=== PATIENT | female | born 1935 | race Caucasian/White ===

== ENCOUNTER → 2023-04-12 09:52 | Outpatient (REF) | payer MEDICARE, SELFPAY ==
[2023-04-12 10:35] LABS: % Basophils 0.3 % (0-2); % Immature Granulocytes 0.8 % (0-0.5); % Lymphocytes 18.1 % (20.5-51.1); % Monocytes 8.3 % (1.7-9.3); % Neutrophils 69.5 % (42.2-75.2); Absolute Eosinophils 0.3 10^3/uL (0-0.7); Absolute Immature Granulocytes 0.1 10^3/uL (0-0.05); Absolute Lymphocytes 1.7 10^3/uL (1.2-3.4); Absolute Monocytes 0.8 10^3/uL (0.1-0.6); Absolute Neutrophils 6.3 10^3/uL (1.4-6.5); Hematocrit 39.7 % (37.0-47.0); Hemoglobin 13.9 g/dL (12.0-16.0); Mean Corpuscular Hgb 33.7 pg (27.0-31.0); Mean Corpuscular Volume 96.4 fL (81.0-99.0); Mean Platelet Volume 9.6 fL (7.4-10.4); Nucleated Red Blood Cells % 0 %; Platelet Count 283 10^3/uL (130-400); Red Blood Cell Count 4.12 10^6/uL (4.20-5.40); Red Cell Dist. Width 11.8 % (11.5-14.5); White Blood Cell Count 9.1 10^3/uL (4.8-10.8)
[2023-04-12 11:09] LABS: ALT (SGPT) 15 U/L (0-35); AST (SGOT) 25 U/L (14-36); Alkaline Phosphatase 69 U/L (38-126); Blood Urea Nitrogen 25 mg/dl (7-17); Calcium 9.6 mg/dl (8.4-10.2); Carbon Dioxide 33 mmol/L (22-30); Chloride 97 mmol/L (98-107); Glucose 129 mg/dl (70-99); HDL Cholesterol 76 mg/dl; LDL Cholesterol, Calculated 97 mg/dl; Potassium 3.9 mmol/L (3.5-5.1); Sodium 133 mmol/L (135-145); Total Cholesterol 191 mg/dl (50-199); Total Protein 6.8 g/dl (6.3-8.2); Triglyceride 92 mg/dl (10-149); Very Low Density Lipoprotein 18 mg/dl (0-30); eGFR > 60.00
[2023-04-12 11:18] LABS: Free T4 1.91 ng/dl (0.78-2.19)
[2023-04-12 11:31] LABS: TSH 1.32 uIU/ml (0.47-4.68)
[2023-04-12 12:43] LABS: Urine Albumin Trace (Neg - Trace); Urine Bilirubin Negative (Negative); Urine Character Clear (Clear); Urine Color Yellow; Urine Glucose Negative (Negative); Urine Ketone Negative (Negative); Urine Leukocyte 2+ (Negative); Urine Nitrite Negative (Negative); Urine Occult Blood 2+ (Negative); Urine Urobilinogen Negative (Neg - 1+)
[2023-04-12 12:57] LABS: Urine Mucus Few
[2023-04-12 12:58] LABS: Urine Bacteria Moderate (Negative); Urine White Cell 16-20 /HPF (0-5)
== END ==
LOC: REG 09:52
PROVIDERS: ATTENDING PHYSICIAN Internal Medicine
DX: E03.8 Other specified hypothyroidism (principal); E78.2 Mixed hyperlipidemia; R73.01 Impaired fasting glucose; I10 Essential (primary) hypertension; I70.0 Atherosclerosis of aorta; E55.9 Vitamin D deficiency, unspecified; R73.03 Prediabetes; M85.89 Other specified disorders of bone density and structure, multiple sites; N32.81 Overactive bladder; Z87.448 Personal history of other diseases of urinary system; Z79.899 Other long term (current) drug therapy
CPT/HCPCS: 36415; 80053; 80061; 81003; 81015; 82306; 84439; 84443; 85025

== ENCOUNTER → 2023-05-10 15:19 | Outpatient (REF) | payer MEDICARE, SELFPAY | LOC: RAD 15:19 | PROVIDERS: ATTENDING PHYSICIAN Internal Medicine | DX: R31.29 Other microscopic hematuria (principal) | CPT/HCPCS: 76770 ==

== ENCOUNTER → 2023-10-09 08:46 | Outpatient (REF) | payer MEDICARE, SELFPAY ==
[2023-10-09 09:52] LABS: % Basophils 0.5 % (0-2); % Eosinophils 4.8 % (0-6); % Immature Granulocytes 0.5 % (0-0.5); % Lymphocytes 19.3 % (20.5-51.1); % Monocytes 7.8 % (1.7-9.3); % Neutrophils 67.1 % (42.2-75.2); Absolute Basophils 0.1 10^3/uL (0-0.2); Absolute Eosinophils 0.4 10^3/uL (0-0.7); Absolute Immature Granulocytes 0.1 10^3/uL (0-0.05); Absolute Lymphocytes 1.8 10^3/uL (1.2-3.4); Absolute Monocytes 0.7 10^3/uL (0.1-0.6); Absolute Neutrophils 6.2 10^3/uL (1.4-6.5); Hematocrit 39.5 % (37.0-47.0); Hemoglobin 13.5 g/dL (12.0-16.0); Mean Corp Hgb Conc. 34.2 g/dL (33.0-37.0); Mean Corpuscular Hgb 33.3 pg (27.0-31.0); Mean Corpuscular Volume 97.3 fL (81.0-99.0); Mean Platelet Volume 10.2 fL (7.4-10.4); Nucleated Red Blood Cells % 0 %; Platelet Count 256 10^3/uL (130-400); Red Blood Cell Count 4.06 10^6/uL (4.20-5.40); Red Cell Dist. Width 11.5 % (11.5-14.5); Urine Albumin Negative (Neg - Trace); Urine Bilirubin Negative (Negative); Urine Character Clear (Clear); Urine Color Yellow; Urine Glucose Negative (Negative); Urine Ketone Negative (Negative); Urine Leukocyte 2+ (Negative); Urine Nitrite Negative (Negative); Urine Occult Blood 1+ (Negative); Urine Specific Gravity 1.015 (<1.030); Urine Urobilinogen Negative (Neg - 1+); White Blood Cell Count 9.2 10^3/uL (4.8-10.8)
[2023-10-09 09:59] LABS: ALT (SGPT) 12 U/L (0-35); AST (SGOT) 24 U/L (14-36); Albumin 4.2 g/dl (3.5-5.0); Alkaline Phosphatase 71 U/L (38-126); Blood Urea Nitrogen 19 mg/dl (7-17); Carbon Dioxide 31 mmol/L (22-30); Chloride 96 mmol/L (98-107); Glucose 120 mg/dl (70-99); HDL Cholesterol 80 mg/dl; LDL Cholesterol, Calculated 98 mg/dl; Potassium 3.8 mmol/L (3.5-5.1); Sodium 133 mmol/L (135-145); Total Bilirubin 1.1 mg/dl (0.2-1.3); Total Cholesterol 198 mg/dl (50-199); Total Protein 6.7 g/dl (6.3-8.2); Triglyceride 104 mg/dl (10-149); Very Low Density Lipoprotein 20 mg/dl (0-30); eGFR > 60.00
[2023-10-09 10:47] LABS: Urine Bacteria Many (Negative); Urine Red Blood Cell 0-2 /HPF (0-2)
[2023-10-09 12:04] LABS: Glycohemoglobin (HgbA1c) 5.8 % (4.0-5.6)
[2023-10-09 12:14] LABS: TSH Reflex To Free T4 2.01 uIU/ml (0.47-4.68)
== END ==
LOC: REG 08:46
PROVIDERS: ATTENDING PHYSICIAN Internal Medicine
DX: E83.119 Hemochromatosis, unspecified (principal); E03.8 Other specified hypothyroidism; E78.2 Mixed hyperlipidemia; R73.01 Impaired fasting glucose; I10 Essential (primary) hypertension; I70.0 Atherosclerosis of aorta; E55.9 Vitamin D deficiency, unspecified; R73.03 Prediabetes; M85.89 Other specified disorders of bone density and structure, multiple sites; Z79.899 Other long term (current) drug therapy; R82.90 Unspecified abnormal findings in urine; R79.9 Abnormal finding of blood chemistry, unspecified; R79.89 Other specified abnormal findings of blood chemistry
CPT/HCPCS: 36415; 80053; 80061; 81003; 81015; 82306; 83036; 84443; 85025

== ENCOUNTER → 2023-12-17 14:48 | Outpatient (REF) | payer MEDICARE, SELFPAY | LOC: RCS 14:48 | PROVIDERS: ATTENDING PHYSICIAN Internal Medicine Cardiovascular Disease; FAMILY PHYSICIAN Internal Medicine | DX: I10 Essential (primary) hypertension (principal); E83.119 Hemochromatosis, unspecified; I36.1 Nonrheumatic tricuspid (valve) insufficiency | CPT/HCPCS: 93306 ==

== ENCOUNTER 2024-07-05 12:39 | Inpatient (IN) | payer MEDICARE, SELFPAY ==
[2024-07-05] VITALS (10 sets, daily range): BP systolic 133–180; BP diastolic 57–100; BMI 28.8
--- NOTE | 2024-07-05 08:21 | ED.GENMED ---
History of Present Illness
General
Chief Complaint: Abdominal Symptoms
Time Seen by Provider: 07/05/24 08:11
History of Present Illness
History of Present Illness:
89-year-old female with history of hypertension presents the emergency department for evaluation of generalized for the past 5 to 6 days associated with nausea and vomiting and lower abdominal pain. She reports abdominal pain began 2 days ago and
vomiting began yesterday. Has been unable to tolerate any p.o. food or fluids in the past 24 hours. No history abdominal surgeries. No fevers. Notes that she did get a COVID vaccination the day prior to onset of symptoms. Denies chest pain or
shortness of breath. No recent URI symptoms.
Past History
Past History
ED Past Medical History: HTN, Hypercholesterolemia and Other (low back pain)
ED Past Surgical History: None
Social History
Tobacco: Non-smoker
Alcohol: None
Personal:
Living: with family
Review of Systems
Review of Systems
Allergies reviewed?: Yes
All Other Systems: ROS reviewed and negative except as documented in HPI and ROS
Phy Exam
Physical Exam
Physical Exam:
GEN: Well appearing, NAD, WDWN
HEENT: Oral mucosa moist, no scleral icterus
Cardiac: Regular rate and rhythm, no murmur
Lung: No respiratory distress, no tachypnea
Abdomen: Soft, diffusely tender to all 4 quadrants with no rigidity or peritoneal signs
MSK: No gross deformity or injuries
Skin: Good color, no pallor or jaundice, no rashes
Neuro: AO x3, moves all extremities freely
Psych: Calm, cooperative
Course
Orders/Labs/Results
Orders:
Orders
07/05/24 Breakfast
NPO
Allow oral meds: No
Allow clear liquids: Sips of Clears
NPO with Ice Chips: No
07/05/24 08:20
Electrocardiogram (*1) Urgent
Reason for Study: QTc Monitoring
EKG- Treatment ONCE
0.9% Sodium Chloride 1000 ml [Nss] 1,000 ml IV BOLUS
Ondansetron Injectable [Zofran] 4 mg IV NOW STA
07/05/24 08:28
Complete Blood Count/With Diff Urgent
Comprehensive Metabolic Panel Urgent
Lipase Urgent
07/05/24 10:23
CT Abd/Pel (IV only)-DH only Urgent
Comment:
Reason For Exam: lower abd pain
07/05/24 12:20
Admit/Transfer Patient As Directed
Co-Sign Provider:
Level of Care: Inpatient admission
Assign to:: Medical/Surgical
Physician / Group: [email or web address]
Diagnosis: colon mass, partial large BWO
Reason for Hospitalization: large colon mass( 3cm x1 cm) at splenic flexure cocerning for colon CA
suspect developing parial large BWO with N/V
Expected length of stay greater than two midnights?: Yes
ELOS- Estimated Length of Stay in days: 5
I certify the patient meets the requirements for IP care: Yes
07/05/24 12:25
Code Status As Directed
Resuscitation Status: Full Code
07/05/24 12:35
Code Status As Directed
Resuscitation Status: Do not resuscitate
Reached after discussion with pt or family/Healthcare POA: Yes
Decision communicated with: patient in the presence of ELECTRO OPTICS ENGINEER
DNR Bracelet Application ONCE
07/05/24 12:48
HYDROmorphone [Dilaudid] 0.5 mg IV Q4HPRN PRN
Ketorolac [Toradol] 10 mg IV Q6HPRN PRN
Ondansetron Injectable [Zofran] 4 mg IV Q6HPRN PRN
07/05/24 13:04
0.9% Sodium Chloride 1000 ml [Nss] 1,000 ml IV 60 mls/hr
07/05/24 13:25
ColoRectal Surgery Consult Routine
Consulting Provider: Bo Moreno
Was physician already notified: Yes
Reason for consult: colon mass, partial large BWO
07/05/24 14:13
Bisacodyl [Dulcolax] 10 mg RECTAL [id number] PRN
Docusate W/Senna [Senokot-S] 1 tablet PO BIDPRN PRN
Polyethylene Glycol Powder [Miralax] 17 grams PO DAILYPRN PRN
07/05/24 14:13
Activity As Directed
Activity Level: With Assistance
Intake/ Output As Directed
Frequency: Per unit guidelines
Vital Signs As Directed
Frequency: Per unit guidelines
Weight As Directed
Frequency: Daily
DX Deep Vein Thrombosis Video Routine
07/05/24 20:00
Heparin 5,000 units SC Q12
07/06/24 06:00
Basic Metabolic Panel IN AM
Complete Blood Count/With Diff IN AM
Abnormal Lab Results
07/05/24
08:28
WBC 11.9 H 10^3/uL
(4.8-10.8)
RBC 4.05 L 10^6/uL
(4.20-5.40)
Hct 36.0 L %
(37.0-47.0)
Abs Immat Gran (auto) 0.1 H 10^3/uL
(0-0.05)
Absolute Neuts (auto) 9.5 H 10^3/uL
(1.4-6.5)
Absolute Monos (auto) 0.8 H 10^3/uL
(0.1-0.6)
Neutrophils % 79.6 H %
(42.2-75.2)
Lymphocytes % 12.4 L %
(20.5-51.1)
Sodium 134 L mmol/L
(135-145)
BUN 25 H mg/dl
(7-17)
Glucose 136 H mg/dl
(70-99)
Calcium 10.3 H mg/dl
(8.4-10.2)
07/05/24 08:28
07/05/24 08:28
Vital Signs
Initial and Last Documented VS:
Initial Vital Signs
Pulse Resp BP Pulse Ox
69 16 162/78 96
07/05/24 08:13 07/05/24 08:13 07/05/24 08:13 07/05/24 08:13
Last Documented Vital Signs
Temp Pulse Resp BP Pulse Ox
98.2 F 65 16 176/77 96
07/05/24 14:15 07/05/24 14:15 07/05/24 14:15 07/05/24 14:15 07/05/24 14:15
MDM/Problems Addressed
MDM/Problems Addressed:
Will admit due to findings of potential developing bowel obstruction for colorectal surgery evaluation, she has a nonperitoneal abdominal exam
*Critical Care Note
Total Time (30-74mins, 75-104mins- exclusive of procedures): Not Applicable
ED Attending Note
-
Portions of this chart may have been created with voice recognition software.� Occasional wrong word or��sound alike� substitutions may have occurred due to the inherent limitations of voice recognition software.
Discharge Plan
Departure
Patient Disposition: Admit
Date of Disposition: 07/05/24
Time of Disposition: 11:58
Admit to: Med/Surg
Presentation/result/management discussed w/ accepting MD/DO: Hospitalist
Discharge Problem:
Partial large bowel obstruction
Interventions
Interventions:
*Risk Screen - Suicide Last Done: 07/05/24 09:20
*General Assessment Last Done: 07/05/24 08:16
*Neglect/Abuse Screening Last Done: 07/05/24 08:16
*ED- Fall Risk Assessment Last Done: 07/05/24 08:17
*ED COVID-19 Vaccine History Last Done: 07/05/24 08:17
*Nursing Disposition Last Done: 07/05/24 14:10
JN-[facility]oss[facility]-Trwaaxuhww Assessment Last Done: 07/05/24 08:27
Discharge Date and Time
Discharge Date/Time: 07/05/24 14:15
[2024-07-05] MEDS: NSS 1000 IV ×2 (08:26→13:37)
[2024-07-05] MEDS: ZOFRAN 4 MG IV ×3 (08:27→20:42)
[2024-07-05 08:39] LABS: % Basophils 0.3 % (0-2); % Eosinophils 0.5 % (0-6); % Immature Granulocytes 0.5 % (0-0.5); % Lymphocytes 12.4 % (20.5-51.1); % Monocytes 6.7 % (1.7-9.3); % Neutrophils 79.6 % (42.2-75.2); Absolute Eosinophils 0.1 10^3/uL (0-0.7); Absolute Immature Granulocytes 0.1 10^3/uL (0-0.05); Absolute Lymphocytes 1.5 10^3/uL (1.2-3.4); Absolute Monocytes 0.8 10^3/uL (0.1-0.6); Absolute Neutrophils 9.5 10^3/uL (1.4-6.5); Hemoglobin 12.1 g/dL (12.0-16.0); Mean Corp Hgb Conc. 33.6 g/dL (33.0-37.0); Mean Corpuscular Hgb 29.9 pg (27.0-31.0); Mean Corpuscular Volume 88.9 fL (81.0-99.0); Mean Platelet Volume 9.4 fL (7.4-10.4); Nucleated Red Blood Cells % 0 %; Platelet Count 303 10^3/uL (130-400); Red Blood Cell Count 4.05 10^6/uL (4.20-5.40); Red Cell Dist. Width 12.5 % (11.5-14.5); White Blood Cell Count 11.9 10^3/uL (4.8-10.8)
[2024-07-05 08:47] LABS: ALT (SGPT) 13 U/L (0-35); AST (SGOT) 21 U/L (14-36); Albumin 4.1 g/dl (3.5-5.0); Alkaline Phosphatase 69 U/L (38-126); Blood Urea Nitrogen 25 mg/dl (7-17); Calcium 10.3 mg/dl (8.4-10.2); Carbon Dioxide 25 mmol/L (22-30); Chloride 99 mmol/L (98-107); Glucose 136 mg/dl (70-99); Lipase 33 U/L (23-300); Potassium 4.7 mmol/L (3.5-5.1); Sodium 134 mmol/L (135-145); eGFR > 60.00
--- NOTE | 2024-07-05 12:02 | HPS.HSE ---
Family Physician
-
Family Physician: Shalom Couch
Chief Complaint
-
abdominal pain and N/V
History of Present Illness
HPI
89F Non smoker HX HTN, HLD, chr LBP seen at ER
- onset of generalized lower abdominal pain for 5 to 6 days
- associated with nausea and vomiting and
- vomiting began yesterday
- unable to tolerate any p.o. food or fluids in the past 24 hours.
- No history abdominal surgeries.
- No fevers.
- Notes that she did get a COVID vaccination the day prior to onset of symptoms.
- Denies chest pain or shortness of breath. No recent URI symptoms.
Medical History
Past Medical History
Past Medical History: Reports HTN and Hypercholesterolemia
Past Surgical History: Reports None
Social History
Tobacco: Non-smoker
Drug: None
Family History
Family History: Not pertinent
Allergies / Home Medications
Allergies reflects when Allergies were last updated in [facility].
Home Medications with original date entered in [facility]
Allergy/Medication List:
Allergies
Allergy/AdvReac Type Severity Reaction Status Date / Time
codeine Allergy Nausea / Verified 07/05/24 12:04
Vomiting
Home Medications
bismuth subsalicylate 262 mg chewable tablet 1 tab PO PRN PRN .as directed 07/05/24
calcium 600 mg (as carbonate)-vit D3 20 mcg (800 unit) chewable tablet (Caltrate plus D) 1 tab PO DAILY 07/05/24
levothyroxine 88 mcg tablet 88 mcg PO DAILY 07/05/24
losartan 50 mg tablet 50 mg PO DAILY 07/05/24
multivitamin-ferrous fumarate-folic acid 18 mg-400 mcg tablet (Centrum Women) 1 tab PO DAILY 07/05/24
nebivolol 5 mg tablet 5 mg PO BID 07/05/24
omega 3-bcb-lfr-fish oil 1,200 mg (144 mg-216 mg) capsule (Fish Oil) 1 cap PO DAILY 07/05/24
omeprazole 20 mg capsule,delayed release 20 mg PO DAILY 07/05/24
pravastatin 20 mg tablet 20 mg PO DAILY 07/05/24
tolterodine 4 mg capsule,extended release 24 hr 4 mg PO DAILY 07/05/24
tramadol 50 mg tablet 50 mg PO PRN PRN pain 07/05/24
zolpidem 5 mg tablet 5 mg PO HS 07/05/24
Review of Systems
-
Constitutional: Reports No Symptoms
EENT: Reports No Symptoms
Respiratory: Reports No Symptoms
Cardiac: Reports No Symptoms
Abdomen/GI: Reports Abdominal Pain, Nausea and Vomiting
: Reports No Symptoms
Musculoskeletal: Reports No Symptoms
Skin: Reports No Symptoms
Neurological: Reports No Symptoms
Endocrine: Reports No Symptoms
Hematologic/Lymphatic: Reports No Symptoms
Psych: Reports No Symptoms
Physical Exam
Vital Signs
Vital Signs
Temp Pulse Resp BP Pulse Ox
99.2 F 66 25 168/65 94
07/05/24 08:14 07/05/24 11:45 07/05/24 11:45 07/05/24 10:54 07/05/24 09:30
Physical Exam
General: Well Developed, Well Nourished and No Apparent Distress
HEENT: NormoCephalic, Moist mucous membranes and Atraumatic
Respiratory: Clear
Cardiac: S1/S2 and Regular Rhythm; No Murmur or Rub
GI: Other (Soft, diffusely tender to all 4 quadrants with no rigidity or no peritoneal signs)
Rectal: Deferred by Provider
Musculoskeletal: No Clubbing, No Cyanosis and No Edema
Skin: No Rash
Neuro: Nonfocal/grossly intact
Laboratory Results
-
07/05/24 08:28
07/05/24 08:28
Laboratory Results
Total Bilirubin 1.0 mg/dl (0.2-1.3) 07/05/24 08:28
AST 21 U/L (14-36) 07/05/24 08:28
ALT 13 U/L (0-35) 07/05/24 08:28
Alkaline Phosphatase 69 U/L (38-126) 07/05/24 08:28
Lipase 33 U/L (23-300) 07/05/24 08:28
Data Reviewed
-
CT Scan: Report Reviewed by me
Medical Tests (Nuc Med, Echo, EKG etc): Report Reviewed by me
Lab Data: Labs Reviewed by me
Impression/Plan
-
Selected Entries
07/05/24
08:14 07/05/24
09:00
Pulse 64
Resp Rate 14
Blood pressure 162/78 175/57
Laboratory Tests
07/05/24
08:28
WBC 11.9 H
Hgb 12.1
MCV 88.9
Plt Count 303
Sodium 134 L
BUN 25 H
Creatinine 0.8
eGFR > 60.00
Calcium 10.3 H
AST 21
ALT 13
EKG report
NORMAL SINUS RHYTHM
NORMAL ECG
WHEN COMPARED WITH ECG OF 11-MAR-2022 14:45,
NO SIGNIFICANT CHANGE WAS FOUND
CT AP (IV only)
- probable intraluminal mass of the left colon in the splenic flexure with proximal colonic dilatation suggesting developing obstruction.
- Moderate diverticulosis. No evidence of acute diverticulitis.
- Large hiatal hernia.
- Right parapelvic renal cyst.
- Bilateral too small to characterize hypodense renal lesions likely benign cysts.
- Mild cardiomegaly
- Mild compression fractures. L2 is stable from 11/05/2020. T12 is new from previous exams but age indeterminate.
No prior hospitalist admission:
ASSESSMENT & PLAN
large colon mass( 3cm x1 cm) at splenic flexure concerning for colon CA ( patient aware)
suspect developing partial large BWO
Nausea but�vomiting is somewhat settled down
Intolerant to POs
- Hold of NGT unless persistently vomiting
- NPO and IV NS
- PRN narcotic analgesia
- PRN anti emetics
- CRS consulted
Systolic HTN of elderly
Essential HTN
- add IV hydralazine PRN for SBP > 165, DBP > 110
- Hold Losartan, nebivolol
HLD
- hold pravastatin
Hypothyroid
- hold LT4
Chronic LBP
on PRN IV narcotic analgesia for BWO
- T12 compression Fx new form 2020 but age indeterminate.
- Mild compression fractures. L2 is stable from 11/05/2020
- Hold of NSAIDS for now
DVT Px: SQH
Code: DNR per patient witnessed by LEAD SOFTWARE ARCHITECT
IP MS
[2024-07-05] MEDS: DILAUDID 0.5 MG IV ×2 (13:05→22:13)
--- NOTE | 2024-07-05 15:51 | CON.CRS ---
Addendum entered and electronically signed by Bo Moreno MD 07/05/24 16:52:
Patient seen and examined with surgical STEAM PIPE FITTER in consultation. Agree with documented consultation note with additions noted here.
Patient's daughter on telephone during our conversation as well and I discussed directly with her following the consultation and discussions with her mother.
HPI: 89-year-old female presenting with acute onset of abdominal pain and anorexia with nausea and mucoid vomiting.
Her symptoms have been proceeded with about a month or so of anorexia and subsequent discomfort along her upper abdomen. She does not recall much change in her stools recently but on further questioning she may have had some recent tarry or black
stools. Her acute symptoms developed after having pizza 48 hours ago with worsening abdominal pain nausea vomiting. She denies any significant abdominal pain before this.
She is independently living in an apartment with her . Previous care in [facility] and moved up to [facility] over the last few years. She was actually planned to move to [place] where her daughter who is a nurse resides in about 1
week
Last colonoscopy was at the age of [age] years old and reports she has had multiple polypectomies for benign polyps with just about all of her colonoscopies.
PMH only notable for hypertension, GERD hypercholesterolemia hypothyroidism and lumbar back disease
Denies any past surgical history
AFVSS
NAD AAO x 3
Abdomen a bit protuberant but not tensely distended. Mild tenderness palpation predominantly in the epigastrium, periumbilical and right side. There is no rebound rigidity or guarding. No percussion tenderness.
CT imaging personally reviewed. There appears to be an obstructing mass in the region of the splenic flexure just proximal to the descending colon. Cecum ascending colon and transverse colon is fluid-filled and distended but no pneumatosis or
severe distention. Fluid-filled ileum and distal small bowel. Liver unremarkable. No obvious regional adenopathy.
Assessment/plan: 89-year-old female presenting with partial but now likely high-grade large bowel obstruction secondary to mass visualized just proximal to the splenic flexure.
No immediate signs of bowel threat or compromise such as ischemia, perforation, pneumatosis.
Recommend bowel rest, IV fluid hydration to see if there is some spontaneous decompression of the colon.
Unlikely to tolerate bowel prep or aggressive bowel regimen for colonoscopy.
Discussed with patient and her daughter likely plan to proceed with surgical resection during this hospitalization with timing to be determined as of yet.
Check CEA and CA 19-9
In general we discussed the potential operative findings and expected need for probable laparotomy and at least segmental colon resection possibly longer length depending on operative findings.
We discussed postoperative risks specifically utilizing the ACS NSQIP surgical risk calculator score
30-day mortality 5.7%
Serious complication 23%
Any complication 23.1%
Return to the OR 5.4%
Colectomy ileus 25%
Anastomotic leak 4.5%
Predicted length of hospital stay 10 days
Any of the patient's or her daughter's concerns or questions were confirmed to be fully addressed. We will continue to follow and timing of surgery to be determined.
Original Note:
Consultation
-
Date/Time Consultation Performed: 07/05/24 1540
Medical History
-
Chief Complaint: abd pain with n/v
History of Present Illness:
Ms Steele ia an 89 yo female with a h/o htn, hypothyroid with last colonoscopy at age 81 with h/o polyps who presented through the ED with abdominal pain with nausea and vomiting. She notes that over the past month she has had diminished appetite
with increasing discomfort across her upper abdomen over the last week or so. She has passed some small amounts of stool but nothing significant for about a week. She may have had some tarry stools but is unsure. Yesterday, after having pizza she
developed nausea with vomiting. Her last episode of emesis was last night. On exam, she has some mild upper abdominal tenderness with distention/tympany present.
Past Medical History
Past Medical History: GERD, HTN, Hypercholesterolemia, Hypothyroidism and Other (low back pain)
Past Surgical History: None
Social History
Tobacco: Non-Smoker
Alcohol: None
Allergies / Home Medications
Allergy/AdvReac Type Severity Reaction Status Date / Time
codeine Allergy Nausea / Verified 07/05/24 12:04
Vomiting
�Medication �Instructions �Recorded �Confirmed �Type
bismuth subsalicylate 262 mg/15 mL 524 mg PO DAILYPRN PRN stomach 07/05/24 07/05/24 History
oral suspension (Pepto-Bismol) issuses
calcium 600 mg (as carbonate)-vit 1 tab PO DAILY 07/05/24 07/05/24 History
D3 20 mcg (800 unit) chewable
tablet (Caltrate plus D)
levothyroxine 88 mcg tablet 88 mcg PO DAILY 07/05/24 07/05/24 History
losartan 50 mg tablet 50 mg PO DAILY 07/05/24 07/05/24 History
multivitamin-ferrous 1 tab PO DAILY 07/05/24 07/05/24 History
fumarate-folic acid 18 mg-400 mcg
tablet (Centrum Women)
nebivolol 5 mg tablet 5 mg PO DAILY 07/05/24 07/05/24 History
omega 4-amz-jtj-fish oil 1,200 mg 1 cap PO DAILY 07/05/24 07/05/24 History
(144 mg-216 mg) capsule (Fish Oil)
omeprazole 20 mg capsule,delayed 20 mg PO DAILY 07/05/24 07/05/24 History
release
pravastatin 20 mg tablet 20 mg PO QPM 07/05/24 07/05/24 History
tolterodine 4 mg capsule,extended 4 mg PO DAILY 07/05/24 07/05/24 History
release 24 hr
tramadol 50 mg tablet 50 mg PO TIDPRN PRN moderate pain 07/05/24 07/05/24 History
zolpidem 5 mg tablet 5 mg PO HS 07/05/24 07/05/24 History
Review of Systems
-
History Source: Patient
All other systems: Negative unless noted
A 10 point review of systems was completed, and was negative except as per HPI.
Physical Exam
Vital Signs
Temp 98.2 F 07/05/24 14:15
Pulse 65 07/05/24 14:15
Resp Rate 16 07/05/24 14:15
Blood pressure 176/77 07/05/24 14:15
SaO2 96 07/05/24 14:15
07/04/24 07/05/24 07/06/24
06:59 06:59 06:59
Actual Weight 66.814 kg
Body Mass Index (BMI) 28.8
Lab Results / Allergies
07/05/24 08:28
07/05/24 08:28
WBC 11.9 10^3/uL (4.8-10.8) H 07/05/24 08:28
Hgb 12.1 g/dL (12.0-16.0) 07/05/24 08:28
Hct 36.0 % (37.0-47.0) L 07/05/24 08:28
Plt Count 303 10^3/uL (130-400) 07/05/24 08:28
Abs Immat Gran (auto) 0.1 10^3/uL (0-0.05) H 07/05/24 08:28
Neutrophils % 79.6 % (42.2-75.2) H 07/05/24 08:28
Allergy/AdvReac Type Severity Reaction Status Date / Time
codeine Allergy Nausea / Verified 07/05/24 12:04
Vomiting
Physical Exam
General: Well Developed and Well Nourished
HEENT: Moist Mucous Membranes
Respiratory: Non Labored Respirations
GI: Soft, Tender (mild to upper abdomen) and Distended
Skin: Warm and Dry
Neuro: Awake, Alert and AO x 3
Psych: Calm
Data Reviewed
-
CT Scan: Image Personally Visualized and interpreted, Report Reviewed by me, Discussed with Physician and Discussed with Patient
Labs: Labs Reviewed by me, Discussed with Physician and Discussed with Patient
Old Records: Reviewed
Assessment / Plan
-
89 yo female with a h/o htn, hypothyroid with last colonoscopy at age 81 with h/o polyps who presents with poor appetite x1 month with a week of worsening abdominal discomfort. Passing very small amounts of stool for approx one week. She developed
nausea and vomiting yesterday causing her to present for evaluation. CT imaging suggestive of developing/partial large bowel obstruction due to a mass in the left colon at the splenic flexure with proximal dilation of the colon. AFVSS.
--Strict NPO
--D/C PO bowel regimen in setting of obstruction
--Analgesics/antiemetics prn
--IVF while NPO
--Check tumor markers
--VTE ppx as per primary team
--No plans for emergent surgery today but do recommend surgical intervention this admission given evidence of obstruction, will coordinate timing with OR
[2024-07-05] MEDS: TORADOL 10 MG IV (15:52)
[2024-07-05] MEDS: HEPARIN 5000 UNITS SC (20:43)
[2024-07-06] MEDS: NSS 1000 IV (03:12)
[2024-07-06 06:58] LABS: % Basophils 0.4 % (0-2); % Eosinophils 0.8 % (0-6); % Immature Granulocytes 0.4 % (0-0.5); % Lymphocytes 20.9 % (20.5-51.1); % Monocytes 10.2 % (1.7-9.3); % Neutrophils 67.3 % (42.2-75.2); Absolute Eosinophils 0.1 10^3/uL (0-0.7); Absolute Lymphocytes 2.1 10^3/uL (1.2-3.4); Absolute Neutrophils 6.7 10^3/uL (1.4-6.5); Hematocrit 32.7 % (37.0-47.0); Hemoglobin 10.7 g/dL (12.0-16.0); Mean Corp Hgb Conc. 32.7 g/dL (33.0-37.0); Mean Corpuscular Hgb 29.8 pg (27.0-31.0); Mean Corpuscular Volume 91.1 fL (81.0-99.0); Mean Platelet Volume 9.9 fL (7.4-10.4); Nucleated Red Blood Cells % 0 %; Platelet Count 297 10^3/uL (130-400); Red Blood Cell Count 3.59 10^6/uL (4.20-5.40); Red Cell Dist. Width 12.7 % (11.5-14.5)
[2024-07-06 07:10] VITALS: BMI 28.7
[2024-07-06 07:15] VITALS: BP 178/77
[2024-07-06 07:25] LABS: Blood Urea Nitrogen 28 mg/dl (7-17); Calcium 9.2 mg/dl (8.4-10.2); Carbon Dioxide 24 mmol/L (22-30); Chloride 102 mmol/L (98-107); Estimated Creatinine Clearance 41 ml/min; Glucose 86 mg/dl (70-99); Potassium 4.1 mmol/L (3.5-5.1); Sodium 135 mmol/L (135-145); eGFR > 60.00
[2024-07-06] MEDS: HEPARIN 5000 UNITS SC ×2 (07:38→20:05)
[2024-07-06] MEDS: TORADOL 10 MG IV (07:40)
[2024-07-06] MEDS: ZOFRAN 4 MG IV ×3 (09:06→22:00)
--- NOTE | 2024-07-06 10:20 | W.PN.GS2 ---
Addendum entered and electronically signed by Bo Moreno MD 07/06/24 10:48:
Patient seen and examined in follow-up with surgical UNISHEAR OPERATOR.
Complains that he was unable to sleep overnight. Denies abdominal pain however.
Nauseated but also reportedly multiple large loose bowel movements
AFVSS
NAD AAO x 3
ABD: Soft, nondistended and there is no tenderness on palpation.
Assessment/plan: 89-year-old female with partial but high-grade large bowel obstruction due to mass on CT imaging just proximal to the splenic flexure
Continue bowel rest except for sips of clears for comfort and p.o. meds
Allow continued spontaneous decompression of proximal colon -given radiographic findings it is unlikely that the patient would tolerate a formal bowel prep
Will order abdominal x-ray for tomorrow a.m. if there is improvement in previous right-sided colonic distention.
Ultimately will require resection at this hospitalization and likely this upcoming week. Timing to be determined.
Original Note:
Today's Communication / Plan
-
NPO for bowel decompression
Assessment / Plan
-
89-year-old female presenting with partial but now likely high-grade large bowel obstruction secondary to mass visualized just proximal to the splenic flexure.
Nausea persists but was able to have 2 large loose stools overnight
No immediate signs of bowel threat or compromise such as ischemia, perforation, pneumatosis.
Plan:
NPO with sips and meds. Ok to resume home dose of Ambien
Recommend bowel rest/IV fluid hydration to allow for some spontaneous decompression of the colon.
Unlikely to tolerate bowel prep or aggressive bowel regimen for colonoscopy.
OR early this week, will coordinate
VTE ppx as per primary team
Subjective Data
-
Date of Service: July 06, 2024
Patient seen and examined at bedside with Dr. Moreno. Denies vomiting but has had intermittent nausea. Denies belching. 2 large episodes of diarrhea overnight. She did not get much sleep and requesting ambien which she takes at home. Doesn't feel
well overall but denies pain.
Objective Data
-
Intake and Output
07/05/24 07/06/24 07/07/24
06:59 06:59 06:59
Intake Total 720 / 720
Balance 720 / 720
Intake:
IV fluids (Total) 720 / 720
Other:
Number of approximated MODERATE 1 3
amounts of urine
Number of unmeasured liquid
stools
Rectum 3
Vital Signs
Temp Pulse Resp BP Pulse Ox
98.2 F 60 18 178/77 96
07/06/24 07:15 07/06/24 07:15 07/06/24 07:15 07/06/24 07:15 07/06/24 07:15
Lab Results
07/06/24 06:21
07/06/24 06:21
Calcium 9.2 mg/dl (8.4-10.2) 07/06/24 06:21
Total Bilirubin 1.0 mg/dl (0.2-1.3) 07/05/24 08:28
AST 21 U/L (14-36) 07/05/24 08:28
ALT 13 U/L (0-35) 07/05/24 08:28
Alkaline Phosphatase 69 U/L (38-126) 07/05/24 08:28
Total Protein 7.0 g/dl (6.3-8.2) 07/05/24 08:28
Albumin 4.1 g/dl (3.5-5.0) 07/05/24 08:28
Physical Exam
-
Cool compress to forehead, uncomfortable appearing
ABD soft, protuberant, nt
[2024-07-06] MEDS: SYNTHROID 88 MCG PO (11:40)
--- NOTE | 2024-07-06 11:46 | W.PN.HOSP.TC ---
Today's Communication/Plan
-
N.p.o., spontaneous decompression
IV fluids
Sips of clear okay
Abdominal x-ray tomorrow morning
Plan for resection this week
Assessment / Plan
Assessment / Plan
Partial large bowel obstruction
Large colon mass( 3cm x1 cm) at splenic flexure concerning for colon CA ( patient aware)
Nausea but�vomiting, improved
Intolerant to POs
- Hold of NGT unless persistently vomiting
- NPO and IV NS; sips of clears okay
- PRN narcotic analgesia
- PRN anti emetics
- CRS consulted, plan for resection at this hospitalization, likely upcoming this week
� Surgery ordering abdominal x-ray for tomorrow
Systolic HTN of elderly
Essential HTN
- add IV hydralazine PRN
- Hold Losartan, nebivolol
HLD
- hold pravastatin
Hypothyroid
- hold LT4
Chronic LBP
on PRN IV narcotic analgesia for BWO
- T12 compression Fx new form 2020 but age indeterminate.
- Mild compression fractures. L2 is stable from 11/05/2020
- Hold of NSAIDS for now
DVT Px: SQH
Code: DNR per patient witnessed by REGULATORY ASSOCIATE
Anticipated Discharge: > 48 hours
Subjective/Interval History
-
Date of Service: July 06, 2024
No acute events
Objective Data
-
Labs:
Laboratory Results
07/06/24
06:21
WBC 10.0
Hgb 10.7 L
Hct 32.7 L
Plt Count 297
Sodium 135
Potassium 4.1
Chloride 102
Carbon Dioxide 24
BUN 28 H
Creatinine 0.8
Glucose 86
Calcium 9.2
Vital Signs:
Vital Signs
Temp Pulse Resp BP Pulse Ox
98.2 F 60 18 178/77 96
07/06/24 07:15 07/06/24 07:15 07/06/24 07:15 07/06/24 07:15 07/06/24 07:15
I&O
07/05/24 07/06/24 07/07/24
06:59 06:59 06:59
Intake Total 720 / 720
Balance 720 / 720
Review of Systems
-
History Source: Patient
All other systems: Not reviewed unless documented
Data Reviewed
-
CT Scan: Report Reviewed by me
Labs: Labs Reviewed by me
--- NOTE | 2024-07-06 12:50 | CM ---
manager practice reviewed patient's chart and met with patient and spouse at bedside, [facility] with spouse is independent with adl's and ambulation, no dme, per patient there are approximately 3 steps to enter and 7 steps to
apartment. Patient drives, patie is for possible surgical procedure this week and will follow for discharge planning needs.
PCP: Dr. Shalom Couch
Pharmacy: [facility]
Plan; Home with spouse when stable.
[2024-07-06 15:30] VITALS: BP 158/82
[2024-07-06] MEDS: NSS (PRESERVATIVE FREE) 10 ML IV (15:33)
[2024-07-06] MEDS: PROTONIX IV 40 MG IV (15:33)
[2024-07-06] MEDS: AMBIEN 5 MG PO (22:00)
[2024-07-06 23:09] VITALS: BP 181/85
[2024-07-06] MEDS: APRESOLINE 10 MG IV (23:15)
[2024-07-07 00:15] VITALS: BP 159/68
[2024-07-07] MEDS: COMPAZINE 5 MG IV (02:15)
[2024-07-07] MEDS: SYNTHROID 88 MCG PO (05:20)
[2024-07-07 06:00] VITALS: BMI 28.8
[2024-07-07] MEDS: ZOFRAN 4 MG IV (07:02)
[2024-07-07 07:42] VITALS: BP 152/84
[2024-07-07 08:00] LABS: Hematocrit 32.9 % (37.0-47.0); Hemoglobin 10.9 g/dL (12.0-16.0); Mean Corp Hgb Conc. 33.1 g/dL (33.0-37.0); Mean Corpuscular Hgb 29.8 pg (27.0-31.0); Mean Corpuscular Volume 89.9 fL (81.0-99.0); Mean Platelet Volume 10.1 fL (7.4-10.4); Platelet Count 308 10^3/uL (130-400); Red Blood Cell Count 3.66 10^6/uL (4.20-5.40); Red Cell Dist. Width 12.8 % (11.5-14.5); White Blood Cell Count 10.1 10^3/uL (4.8-10.8)
[2024-07-07 08:05] LABS: INR 1.01; PT 13.6 Sec (11.4-14.6)
[2024-07-07 08:06] LABS: APTT 27.4 Sec (23.4-35.0)
[2024-07-07] MEDS: NORMOSOL-R/PLASMALYTE-A 1000 IV ×2 (08:18→22:30)
[2024-07-07] MEDS: NSS (PRESERVATIVE FREE) 10 ML IV (08:19)
[2024-07-07] MEDS: HEPARIN 5000 UNITS SC (08:20)
[2024-07-07] MEDS: PROTONIX IV 40 MG IV (08:20)
[2024-07-07] MEDS: FLUSH (NSS) 1 FLUSH IV (08:22)
[2024-07-07 08:29] LABS: Blood Urea Nitrogen 26 mg/dl (7-17); Calcium 9.4 mg/dl (8.4-10.2); Carbon Dioxide 22 mmol/L (22-30); Chloride 103 mmol/L (98-107); Estimated Creatinine Clearance 41 ml/min; Glucose 75 mg/dl (70-99); Potassium 3.9 mmol/L (3.5-5.1); Sodium 135 mmol/L (135-145); eGFR > 60.00
--- NOTE | 2024-07-07 12:54 | W.PN.CRS1 ---
Today's Communication / Plan
-
continue npo
OR tomorrow
2 enemas prior to surgery
Assessment/Plan
-
89-year-old female presenting with partial but now likely high-grade large bowel obstruction secondary to mass visualized just proximal to the splenic flexure.
Plan:
-NPO with sips and meds. Ok to resume home dose of Ambien
-OR scheduled for tomorrow with Dr. Roberto. Pre-op medications ordered (heparin sq and Invanz).
-IVFs ordered
-Will give 2 enemas prior to OR tomorrow
-CT chest for metastatic work up
-Discussed above with patient
Subjective Data
Subjective Data
Date of Service: July 07, 2024
Patient states she had a dark loose stool this morning. She had some nausea but zofran helped. Denies nausea. She is not having any flatus.
Objective Data
-
Vital Signs
Temp Pulse Resp BP Pulse Ox
98.2 F 76 18 152/84 97
07/07/24 07:42 07/07/24 07:42 07/07/24 07:42 07/07/24 07:42 07/07/24 08:15
Intake & Output
07/06/24 07/07/24 07/08/24
06:59 06:59 06:59
Intake Total 720 / 720
Balance 720 / 720
Intake:
IV fluids (Total) 720 / 720
Other:
Number of approximated SMALL 1
amounts of urine
Number of approximated MODERATE 1 2 2
amounts of urine
How many times incontinent 2
MODERATE amount urine
Number of unmeasured liquid
stools
Rectum 3
Lab Results
07/07/24 07:23
07/07/24 07:23
Physical Exam
-
General: No Acute Distress and AOx3
Abdomen: Soft, Non Distended and Non Tender
Skin: Warm and Dry
--- NOTE | 2024-07-07 13:12 | CM ---
CM following re: discharge planning.
Reviewed pt's chart, met with pt.
Per Colorectal surgery, OR scheduled for tomorrow 07/08/24. Pt is aware.
Pt reports she live s with in an apartment and she needs to take 6 steps up and 6 steps down and pt expressed her concerns whether or not she will be ably to do it safely. Pt stated she feels she will need to go to a SNF for a short term
rehab and she preferred [facility]. Pt reports she ambulates with a walker at baseline, has 5 supportive children.
PT and OT will evaluate the pt after surgery.
A referral to [facility] ([place] made and PT/OT evaluation will be faxed when available.
D/C plan: most likely [facility] when medically stable. Awaiting PT/OT evaluations and recommendations.
CM will follow with discharge plan updates as hospitalization progresses
--- NOTE | 2024-07-07 14:53 | W.PN.HOSP.TC ---
Today's Communication/Plan
-
NPO.
For colon resection tomorrow.
Continue IV fluids and monitor electrolytes
Follow hemoglobin
Check iron levels.
Patient with history of hypertension, although with no prior history of significant cardiovascular disorders including CAD, CHF, arrhythmias, no prior history of CVA, diabetes or renal insufficiency.
He presents mild to moderate risk for intervention.
Recent echocardiogram with preserved biventricular function no significant valvular abnormalities.
ECG normal sinus rhythm with no ischemia.
No additional cardiovascular testing required prior to surgical intervention.
Assessment / Plan
Assessment / Plan
Impression:
Presentation with abdominal pain, distention, nausea and vomiting
Splenic flexure mass completely obstructing
Constipation
Chronic normocytic anemia
Other conditions
Essential hypertension.
Dyslipidemia.
Hypothyroidism on replacement
Chronic low back pain
Plan
Obstructive left-sided/splenic flexure colon mass
Patient reported screening colonoscopy about [address] scan findings consistent with large mass size of 3 x 1 cm.
Tumor markers pending.
CT scan of the chest with no evidence of distant disease.
Currently symptomatically controlled with no upper gastrointestinal symptoms while NPO.
Plan is for bowel resection tentatively on 07/08
Continue IV fluids
Minimize narcotics
Follow electrolytes
Chronic normocytic anemia.
Follow hemoglobin.
Check iron levels, B12, folate
Essential hypertension.
- Hold Losartan, nebivolol
IV hydralazine if required
HLD
- hold pravastatin
Hypothyroid
- hold LT4
Chronic LBP
on PRN IV narcotic analgesia for BWO
- T12 compression Fx new form 2020 but age indeterminate.
- Mild compression fractures. L2 is stable from 11/05/2020
- Hold of NSAIDS for now
DVT Px: SQH
Code: DNR per patient witnessed by CNC MAINTENANCE MECHANIC
Anticipated Discharge: > 48 hours
Subjective/Interval History
-
Date of Service: July 07, 2024
Objective Data
-
Labs:
Laboratory Results
07/07/24
07:23
WBC 10.1
Hgb 10.9 L
Hct 32.9 L
Plt Count 308
PT 13.6
INR 1.01
APTT 27.4
Sodium 135
Potassium 3.9
Chloride 103
Carbon Dioxide 22
BUN 26 H
Creatinine 0.8
Glucose 75
Calcium 9.4
Vital Signs:
Vital Signs
Temp Pulse Resp BP Pulse Ox
98.2 F 76 18 152/84 97
07/07/24 07:42 07/07/24 07:42 07/07/24 07:42 07/07/24 07:42 07/07/24 08:15
I&O
07/06/24 07/07/24 07/08/24
06:59 06:59 06:59
Intake Total 720 / 720
Balance 720 / 720
Physical Exam
-
General: Well Developed and No Apparent Distress
HEENT: Normocephalic, Atraumatic and Moist Mucous Membranes
Respiratory: Clear to Auscultation
Cardiac: Regular Rhythm and S1/S2; Negative Murmur, Rub or Gallop
GI: Soft, Nontender, Nondistended and Normal Bowel Sounds; Negative Organomegaly
Rectal: Deferred by Provider
Musculoskeletal: No Clubbing, No Cyanosis and No Edema
Skin: Negative Rash
Neuro: Nonfocal/Grossly Intact
--- NOTE | 2024-07-07 14:59 | W.PN.UPDATE ---
Update Note
Progress Note Update
I have personally reviewed the patient's record and imaging. I recently discussed the situation with the patient in detail. She has at least a partial and worsening large bowel obstruction due to a probable mass of the distal transverse colon. I
suspect malignancy. She has occasional loose liquid transanal output but no flatus. She has intermittent nausea and had a little bit of emesis this past Sunday. Discussed options. Options discussed include upfront surgical intervention versus
colonic stenting with interval resection. In regards to the surgical option, given her age and the dilatation of some of her bowel, anticipate an open approach. Do not plan on a antegrade bowel prep beforehand. A few enemas are ordered.
Intraoperatively decision will be made between segmental resection with colostomy versus abdominal colectomy with ileosigmoid anastomosis. The patient will be marked by ET nursing just in case. Risks and benefits were discussed in detail. Risks
covered including but not limited to bleeding, infection, anastomotic leak, anastomotic stricture, ureteral injury, bowel or solid organ injury, hernia formation, recurrence of the tumor (if a tumor is present), and anesthetic risk. The colonic
stenting option was touched on. I relayed that my recommendation is that surgical option. She is agreeable to this. All questions answered. I will reach out to her daughter as well.
--- NOTE | 2024-07-07 15:00 | WOUNDNOTE ---
WO RN note: Patient stoma marked in LLQ and RLQ. Upper quadrants not an option d/t deep crease across upper quadrants. Stoma marked over the rectus muscle avoiding skin creases. Patient high risk for pouch leakage d/t body habitus. Updated
Pardeep including stoma markings via tiger text explaining why upper quadrants not marked and noting patient high risk for pouch leakage d/t body habitus.
--- NOTE | 2024-07-07 15:05 | WOUNDNOTE ---
[facility] RN note: Patient stoma marked in LLQ and RLQ. Upper quadrants not an option d/t deep crease across upper quadrants. Stoma marked over the rectus muscle avoiding skin creases. RLQ stoma arlen 1.3cm distal to umbilical line and 7.3cm to R of
midline. LLQ stoma arlen .2cm distal to umbilical line and 7.8cm to L of midline. Patient high risk for pouch leakage d/t body habitus. Updated Dr. Roberto including stoma markings via tiger text explaining why upper quadrants not marked and noting
patient high risk for pouch leakage d/t body habitus.
[2024-07-07 15:28] VITALS: BP 151/73
[2024-07-07 15:33] LABS: Iron 52 ug/dl (37-170)
[2024-07-07 15:42] LABS: Percent Saturation 19 % (20-50); Total Iron Binding Capacity 273 ug/dl (265-497)
[2024-07-07 16:31] LABS: Ferritin 13.2 ng/ml (11.1-264.0)
[2024-07-07 17:03] LABS: Folate > 20.0 ng/ml (2.76-20); Vitamin B12 > 1000 pg/ml (239-931)
--- NOTE | 2024-07-07 18:45 | VATNOTE ---
During routine assessment, PIV site in pt's R antecubital fossa appeared red and swollen. Pt complained of mild discomfort at site. PIV site discontinued, heat applied and arm elevated. New PIV established.
[2024-07-07 19:02] LABS: CEA 2.35 ng/ml
[2024-07-07 20:43] VITALS: BP 179/86
[2024-07-07 23:27] VITALS: BP 191/87
[2024-07-07] MEDS: APRESOLINE 10 MG IV (23:44)
[2024-07-08] VITALS (17 sets, daily range): BP systolic 0–163; BP diastolic 54–78; BMI 28.6
[2024-07-08] MEDS: ZOFRAN 4 MG IV (00:30)
[2024-07-08] MEDS: DILAUDID 0.5 MG IV ×2 (00:30→16:57)
[2024-07-08] MEDS: SYNTHROID 88 MCG PO (05:54)
[2024-07-08 07:47] LABS: % Basophils 0.3 % (0-2); % Eosinophils 0.8 % (0-6); % Immature Granulocytes 0.6 % (0-0.5); % Lymphocytes 13.3 % (20.5-51.1); % Monocytes 11.7 % (1.7-9.3); % Neutrophils 73.3 % (42.2-75.2); Absolute Eosinophils 0.1 10^3/uL (0-0.7); Absolute Immature Granulocytes 0.1 10^3/uL (0-0.05); Absolute Lymphocytes 1.5 10^3/uL (1.2-3.4); Absolute Monocytes 1.3 10^3/uL (0.1-0.6); Hematocrit 30.2 % (37.0-47.0); Hemoglobin 10.1 g/dL (12.0-16.0); Mean Corp Hgb Conc. 33.4 g/dL (33.0-37.0); Mean Corpuscular Hgb 29.9 pg (27.0-31.0); Mean Corpuscular Volume 89.3 fL (81.0-99.0); Nucleated Red Blood Cells % 0 %; Platelet Count 288 10^3/uL (130-400); Red Blood Cell Count 3.38 10^6/uL (4.20-5.40); Red Cell Dist. Width 12.9 % (11.5-14.5); White Blood Cell Count 10.9 10^3/uL (4.8-10.8)
[2024-07-08 08:16] LABS: Blood Urea Nitrogen 21 mg/dl (7-17); Calcium 9.2 mg/dl (8.4-10.2); Carbon Dioxide 23 mmol/L (22-30); Chloride 102 mmol/L (98-107); Estimated Creatinine Clearance 47 ml/min; Glucose 64 mg/dl (70-99); Potassium 3.6 mmol/L (3.5-5.1); Sodium 134 mmol/L (135-145); eGFR > 60.00
[2024-07-08] MEDS: PROTONIX IV 40 MG IV (10:07)
[2024-07-08] MEDS: NSS (PRESERVATIVE FREE) 10 ML IV (10:08)
--- NOTE | 2024-07-08 10:56 | CM ---
Reviewed the chart notes and spoke with the patient at the bedside. For OR today. CM continues to be available to patient/family and is monitoring medical plan for needs at discharge.
Plan: Discharge plans will depend on the patient's progress. A referral to [facility] was previous sent.
[2024-07-08] MEDS: NORMOSOL-R/PLASMALYTE-A IV (12:09)
[2024-07-08 13:52] LABS: CA 19-9 6 U/mL (<=35)
--- NOTE | 2024-07-08 13:57 | W.PN.HOSP.TC ---
Today's Communication/Plan
-
OR
Assessment / Plan
Assessment / Plan
Impression:
Presentation with abdominal pain, distention, nausea and vomiting
Splenic flexure mass completely obstructing
Constipation
Chronic normocytic anemia
Other conditions
Essential hypertension.
Dyslipidemia.
Hypothyroidism on replacement
Chronic low back pain
Plan
Obstructive left-sided/splenic flexure colon mass
Patient reported screening colonoscopy about [address] scan findings consistent with large mass size of 3 x 1 cm.
Tumor markers pending.
CT scan of the chest with no evidence of distant disease.
Currently symptomatically controlled with no upper gastrointestinal symptoms while NPO.
Plan is for bowel resection tentatively on 07/08
Continue IV fluids
Minimize narcotics
Follow electrolytes
Chronic normocytic anemia.
Follow hemoglobin.
Check iron levels, B12, folate
Essential hypertension.
- Hold Losartan, nebivolol
IV hydralazine if required
HLD
- hold pravastatin
Hypothyroid
- hold LT4
Chronic LBP
on PRN IV narcotic analgesia for BWO
- T12 compression Fx new form 2020 but age indeterminate.
- Mild compression fractures. L2 is stable from 11/05/2020
- Hold of NSAIDS for now
DVT Px: SQH
Code: DNR per patient witnessed by DRAMATIC COACH
Anticipated Discharge: > 48 hours
Subjective/Interval History
-
Date of Service: July 08, 2024
Objective Data
-
Labs:
Laboratory Results
07/08/24
07:26
WBC 10.9 H
Hgb 10.1 L
Hct 30.2 L
Plt Count 288
Sodium 134 L
Potassium 3.6
Chloride 102
Carbon Dioxide 23
BUN 21 H
Creatinine 0.7
Glucose 64 L
Calcium 9.2
Vital Signs:
Vital Signs
Temp Pulse Resp BP Pulse Ox
98.9 F 88 17 145/70 93
07/08/24 07:26 07/08/24 07:26 07/08/24 07:26 07/08/24 07:26 07/08/24 07:26
I&O
07/07/24 07/08/24 07/09/24
06:59 06:59 06:59
Intake Total 720 / 720 1320 / 1320
Balance 720 / 720 1320 / 1320
Physical Exam
-
General: Well Developed and No Apparent Distress
HEENT: Normocephalic, Atraumatic and Moist Mucous Membranes
Respiratory: Clear to Auscultation
Cardiac: Regular Rhythm and S1/S2; Negative Murmur, Rub or Gallop
GI: Soft, Nontender, Nondistended and Normal Bowel Sounds; Negative Organomegaly
Rectal: Deferred by Provider
Musculoskeletal: No Clubbing, No Cyanosis and No Edema
Skin: Negative Rash
Neuro: Nonfocal/Grossly Intact
--- NOTE | 2024-07-08 14:40 | W.OR.COLCA ---
Addendum entered and electronically signed by Miguel Angel Roberto MD 07/08/24 17:12:
Patient's family members updated [id number] in the patient's room on 2S, recently.
Original Note:
Colon Cancer Post Op Note
Immediate Post Op
Primary Surgeon: Kristin Roberto MD
Assisting Surgeon: Robby Garibay MD
Pre-op Diagnosis: partial large bowel obstruction due to mass (likely colon cancer)
Post-op Diagnosis: same
Procedure Performed: extended right colectomy
Anesthesia Type: general plus TAP block
Specimen / Cultures: extended right colon (R and majority of transverse colon) to include mass
Estimated Blood Loss: 100 cc
Complications: small superficial thermal injury proximal jejunal serosa--repaired
Operative Findings: 1) distal transverse colon mass with associated mild upstream dilation 2) no obvious metastatic disease
NGT in stomach--confirmed.
Benites in bladder.
Will send back to med surg.
Colon Resection
Colon Resection
Operation performed with curative intent: Yes
Tumor Location: Transverse Colon
Extended Right Hemicolectomy: Ileocolic, Right Colic and Middle Colic
[2024-07-08] MEDS: DILAUDID 0.25 MG IV ×3 (14:52→18:39)
[2024-07-08] MEDS: TORADOL 10 MG IV ×2 (15:39→19:55)
[2024-07-08] MEDS: OFIRMEV 100 IV ×2 (15:39→21:23)
[2024-07-08] MEDS: NORMOSOL-R/PLASMALYTE-A 1000 IV ×2 (16:57→17:03)
--- NOTE | 2024-07-08 17:20 | PTCARENOTE ---
received from PACU. patient underwent extended right colectomy. midline incision with scant drainage on the primoseal dressing that is marked. patient is drowsy. able to answer questions and talk to the family. medicated for pain. 16 Fr burns
catheter intact and draining clear yellow urine. NGT to low intermittent suction inserted via L nare marked @ 65.
[2024-07-09] MEDS: TORADOL 10 MG IV ×4 (03:34→20:59)
[2024-07-09] MEDS: OFIRMEV 100 IV ×2 (03:34→08:05)
[2024-07-09] MEDS: NORMOSOL-R/PLASMALYTE-A 1000 IV ×2 (03:36→16:42)
[2024-07-09 04:00] VITALS: BP 137/60
[2024-07-09] MEDS: DILAUDID 0.25 MG IV (04:42)
[2024-07-09 05:40] VITALS: BMI 29.2
[2024-07-09 07:17] LABS: % Basophils 0.1 % (0-2); % Immature Granulocytes 0.5 % (0-0.5); % Lymphocytes 5.6 % (20.5-51.1); % Monocytes 7.2 % (1.7-9.3); % Neutrophils 86.6 % (42.2-75.2); Absolute Immature Granulocytes 0.1 10^3/uL (0-0.05); Absolute Lymphocytes 0.9 10^3/uL (1.2-3.4); Absolute Monocytes 1.2 10^3/uL (0.1-0.6); Absolute Neutrophils 14.4 10^3/uL (1.4-6.5); Hematocrit 29.6 % (37.0-47.0); Hemoglobin 9.8 g/dL (12.0-16.0); Mean Corp Hgb Conc. 33.1 g/dL (33.0-37.0); Mean Corpuscular Volume 90.5 fL (81.0-99.0); Mean Platelet Volume 10.3 fL (7.4-10.4); Nucleated Red Blood Cells % 0 %; Platelet Count 283 10^3/uL (130-400); Red Blood Cell Count 3.27 10^6/uL (4.20-5.40); Red Cell Dist. Width 13.1 % (11.5-14.5); White Blood Cell Count 16.6 10^3/uL (4.8-10.8)
[2024-07-09 07:40] VITALS: BP 134/59
[2024-07-09 07:48] LABS: Blood Urea Nitrogen 24 mg/dl (7-17); Calcium 8.5 mg/dl (8.4-10.2); Carbon Dioxide 24 mmol/L (22-30); Chloride 99 mmol/L (98-107); Estimated Creatinine Clearance 37 ml/min; Glucose 105 mg/dl (70-99); Magnesium 2.2 mg/dl (1.6-2.3); Potassium 3.9 mmol/L (3.5-5.1); Sodium 134 mmol/L (135-145); eGFR > 60.00
--- NOTE | 2024-07-09 08:02 | VATNOTE ---
Pt R AC still appears red and slightly swollen. Pt denies any pain or discomfort at site. Heat applied per pt request and extremity elevated on pillow.
[2024-07-09] MEDS: NSS (PRESERVATIVE FREE) 10 ML IV (08:05)
[2024-07-09] MEDS: PROTONIX IV 40 MG IV (08:05)
[2024-07-09] MEDS: DILAUDID 0.5 MG IV ×3 (09:04→22:15)
[2024-07-09 09:33] VITALS: BP 124/54; BP 124/57; BP 139/91; PULSE 76; O2SAT 91
--- NOTE | 2024-07-09 11:11 | W.PN.CRS1 ---
Today's Communication / Plan
-
Maintain NG tube and await bowel function
Out of bed with physical therapy
Assessment/Plan
-
POD#1 partial large bowel obstruction due to mass (likely colon cancer)
Hgb 9.8 (10.1), WBC 16.6 (10.9)
vitals normal
-Maintain NG tube today and await bowel function
- Continue IV fluids
- Continue Benites today, discontinue tomorrow
- OR pathology pending
- Restart heparin subcu for DVT prophylaxis. Teds and SCDs in place
- Physical therapy and Occupational Therapy ordered
- Pain control: Tylenol and Toradol standing, Dilaudid as needed
- Appreciate hospitalist
Subjective Data
Procedure
07/08/2024- partial large bowel obstruction due to mass (likely colon cancer)
Subjective Data
Date of Service: July 09, 2024
Patient states she has no nausea or vomiting. She has not have any bowel movements or flatus yet. Her pain is controlled. She has no complaints.
Objective Data
-
Vital Signs
Temp Pulse Resp BP Pulse Ox
98.5 F 81 18 134/59 95
07/09/24 07:40 07/09/24 07:40 07/09/24 07:40 07/09/24 07:40 07/09/24 07:40
Intake & Output
07/08/24 07/09/24 07/10/24
06:59 06:59 06:59
Intake Total 1320 / 1320 1285 / 1285 100 / 100
Output Total 825 / 825
Balance 1320 / 1320 460 / 460 100 / 100
Intake:
Oral fluids 0 / 0
IV fluids (Total) 1320 / 1320 1085 / 1085
normolsol 125 / 125
IV piggybacks 200 / 200 100 / 100
Amount instilled into GI Tube ( 0 / 0
Total)
[place] Sump 0 / 0
Output:
Drain Output (Total) 0 / 0
Left Sump 0 / 0
Gastrointestinal tube output ( 300 / 300
Total)
[place] Sump 300 / 300
Urine, Benites 525 / 525
Other:
Number of approximated SMALL 1
amounts of urine
Number of approximated MODERATE 2 2
amounts of urine
Lab Results
07/09/24 06:22
07/09/24 06:22
Physical Exam
-
General: No Acute Distress and AOx3
Abdomen: Soft, Non Distended, Non Tender and Other (ERIC drain with serosanguineous output)
Skin: Warm and Dry
Wound: Dressing in Place
[2024-07-09 11:25] VITALS: BP 116/52
--- NOTE | 2024-07-09 14:33 | W.PN.HOSP.TC ---
Today's Communication/Plan
-
Postoperative care
Assessment / Plan
Assessment / Plan
Impression:
Presentation with abdominal pain, distention, nausea and vomiting
Splenic flexure mass completely obstructing
Constipation
Chronic normocytic anemia
Other conditions
Essential hypertension.
Dyslipidemia.
Hypothyroidism on replacement
Chronic low back pain
Plan
Obstructive left-sided/splenic flexure colon mass
Patient reported screening colonoscopy about [address] scan findings consistent with large mass size of 3 x [address] scan of the chest with no evidence of distant disease.
Currently symptomatically controlled with no upper gastrointestinal symptoms while NPO.
Status post extended right colectomy on 07/08.
Postoperative care as per surgery
NG tube remains.
Benites catheter remains
Maintain IV fluids and follow electrolytes
Increase activity
Follow path report
Chronic normocytic anemia.
Follow hemoglobin.
Check iron levels, B12, folate
Essential hypertension.
- Hold Losartan, nebivolol
IV hydralazine if required
HLD
- hold pravastatin
Hypothyroid
- hold LT4
Chronic LBP
on PRN IV narcotic analgesia for BWO
- T12 compression Fx new form 2020 but age indeterminate.
- Mild compression fractures. L2 is stable from 11/05/2020
- Hold of NSAIDS for now
DVT Px: SQH
Code: DNR per patient witnessed by ROAD CREW MEMBER
Anticipated Discharge: > 48 hours
Subjective/Interval History
-
Date of Service: July 09, 2024
Objective Data
-
Labs:
Laboratory Results
07/09/24
06:22
WBC 16.6 H
Hgb 9.8 L
Hct 29.6 L
Plt Count 283
Sodium 134 L
Potassium 3.9
Chloride 99
Carbon Dioxide 24
BUN 24 H
Creatinine 0.9
Glucose 105 H
Calcium 8.5
Vital Signs:
Vital Signs
Temp Pulse Resp BP Pulse Ox
97.5 F 70 16 116/52 95
07/09/24 11:25 07/09/24 11:25 07/09/24 11:25 07/09/24 11:25 07/09/24 11:25
I&O
07/08/24 07/09/24 07/10/24
06:59 06:59 06:59
Intake Total 1320 / 1320 1285 / 1285 100 / 100
Output Total 825 / 825
Balance 1320 / 1320 460 / 460 100 / 100
Physical Exam
-
General: Well Developed and No Apparent Distress
HEENT: Normocephalic, Atraumatic and Moist Mucous Membranes
Respiratory: Clear to Auscultation
Cardiac: Regular Rhythm and S1/S2; Negative Murmur, Rub or Gallop
GI: Soft, Nontender, Nondistended and Normal Bowel Sounds; Negative Organomegaly
Rectal: Deferred by Provider
Musculoskeletal: No Clubbing, No Cyanosis and No Edema
Skin: Negative Rash
Neuro: Nonfocal/Grossly Intact
--- NOTE | 2024-07-09 14:33 | CM ---
CM following re: discharge planning.
Reviewed pt's chart, met with pt.
Pt is POD#1 partial large bowel obstruction due to mass (likely colon cancer), continue supportive care.
Pt live s with in an apartment and she needs to take 6 steps up and 6 steps down and pt expressed her concerns whether or not she will be ably to do it safely. Pt stated she feels she will need to go to a SNF for a short term rehab and she
preferred [facility]. Pt reports she ambulates with a walker at baseline, has 5 supportive children.
PT and OT evaluations noted - SNF vs home PT recommended. Pt preferred SNF level of care and pt requested [facility]. Updated clinical faxed to [facility].
[facility] offered a bed based on bed availability on the day of discharge.
D/C plan: [facility] when medically stable.
CM will follow to assist pt with discharge to [facility].
[2024-07-09 15:51] VITALS: BP 148/59
[2024-07-09] MEDS: HEPARIN 5000 UNITS SC (20:59)
[2024-07-09] MEDS: CHLORASEPTIC/SORE THROAT SPRAY 1 SPRAY PO (21:14)
[2024-07-09 23:00] VITALS: BP 140/58
[2024-07-10] MEDS: TORADOL 10 MG IV ×4 (02:56→22:25)
[2024-07-10] MEDS: NORMOSOL-R/PLASMALYTE-A 1000 IV ×2 (04:26→17:17)
[2024-07-10] MEDS: DILAUDID 0.5 MG IV (05:00)
[2024-07-10] MEDS: CHLORASEPTIC/SORE THROAT SPRAY 1 SPRAY PO ×3 (05:11→12:48)
[2024-07-10 05:12] VITALS: BMI 29.2
[2024-07-10 07:23] LABS: % Basophils 0.2 % (0-2); % Eosinophils 1.1 % (0-6); % Immature Granulocytes 0.4 % (0-0.5); % Lymphocytes 10.4 % (20.5-51.1); % Monocytes 8.4 % (1.7-9.3); % Neutrophils 79.5 % (42.2-75.2); Absolute Eosinophils 0.1 10^3/uL (0-0.7); Absolute Immature Granulocytes 0.1 10^3/uL (0-0.05); Absolute Lymphocytes 1.2 10^3/uL (1.2-3.4); Absolute Neutrophils 9.1 10^3/uL (1.4-6.5); Hematocrit 29.2 % (37.0-47.0); Hemoglobin 9.7 g/dL (12.0-16.0); Mean Corp Hgb Conc. 33.2 g/dL (33.0-37.0); Mean Corpuscular Hgb 30.5 pg (27.0-31.0); Mean Corpuscular Volume 91.8 fL (81.0-99.0); Mean Platelet Volume 10.1 fL (7.4-10.4); Nucleated Red Blood Cells % 0 %; Platelet Count 299 10^3/uL (130-400); Red Blood Cell Count 3.18 10^6/uL (4.20-5.40); Red Cell Dist. Width 13.5 % (11.5-14.5); White Blood Cell Count 11.4 10^3/uL (4.8-10.8)
[2024-07-10 07:35] VITALS: BP 135/53
[2024-07-10 07:45] LABS: Blood Urea Nitrogen 30 mg/dl (7-17); Calcium 8.6 mg/dl (8.4-10.2); Carbon Dioxide 26 mmol/L (22-30); Chloride 99 mmol/L (98-107); Estimated Creatinine Clearance 42 ml/min; Glucose 64 mg/dl (70-99); Potassium 3.5 mmol/L (3.5-5.1); Sodium 138 mmol/L (135-145); eGFR > 60.00
[2024-07-10] MEDS: HEPARIN 5000 UNITS SC ×2 (09:12→19:50)
[2024-07-10] MEDS: PROTONIX IV 40 MG IV (09:12)
[2024-07-10] MEDS: NSS (PRESERVATIVE FREE) 10 ML IV (09:12)
--- NOTE | 2024-07-10 10:13 | W.PN.CRS1 ---
Today's Communication / Plan
-
await bowel function
continue ngt
Assessment/Plan
-
POD#2 partial large bowel obstruction due to mass (likely colon cancer)
Hgb 11.4 (16.6), Hgb 9.7
vitals normal
-Maintain NG tube today and await bowel function
- Continue IV fluids
- Await voiding trial
- OR pathology pending
- Restart heparin subcu for DVT prophylaxis. Teds and SCDs in place
- Physical therapy and Occupational Therapy ordered
- Pain control: Tylenol and Toradol standing, Dilaudid as needed
- Appreciate hospitalist
Subjective Data
Procedure
07/08/2024- partial large bowel obstruction due to mass (likely colon cancer)
Subjective Data
Date of Service: July 10, 2024
Patient states she has no nausea or vomiting. She is 'sore' but has no real pain. She denies bms or flatus yet.
Objective Data
-
Vital Signs
Temp Pulse Resp BP Pulse Ox
98.2 F 84 16 135/53 95
07/10/24 07:35 07/10/24 07:35 07/10/24 07:35 07/10/24 07:35 07/10/24 07:35
Intake & Output
07/09/24 07/10/24 07/11/24
06:59 06:59 06:59
Intake Total 1285 / 1285 2300 / 2300
Output Total 825 / 825 1475 / 1475
Balance 460 / 460 825 / 825
Intake:
Oral fluids 0 / 0 100 / 100
IV fluids (Total) 1085 / 1085 1920 / 1920
normolsol 125 / 125
IV piggybacks 200 / 200 100 / 100
Amount instilled into GI Tube ( 0 / 0 180 / 180
Total)
[facility] Sump 0 / 0 180 / 180
Output:
Drain Output (Total) 0 / 0
Left Sump 0 / 0
Gastrointestinal tube output ( 300 / 300 825 / 825
Total)
[facility] Sump 300 / 300 825 / 825
Urine, Benites 525 / 525 650 / 650
Other:
Number of approximated MODERATE 2
amounts of urine
Lab Results
07/10/24 06:20
07/10/24 06:20
Physical Exam
-
General: No Acute Distress and AOx3
Abdomen: Soft, Non Distended and Non Tender
Skin: Warm and Dry
Incision: Clear, Dry, Intact
[2024-07-10 13:08] VITALS: PULSE 94; O2SAT 99
--- NOTE | 2024-07-10 13:28 | CM ---
Reviewed the chart notes. Patient remains NPO with NGT. PT recommending home health. CM continues to be available to patient/family and is monitoring medical plan for needs at discharge.
Plan: Discharge plans will depend on patient's progress.
--- NOTE | 2024-07-10 14:28 | W.PN.HOSP.TC ---
Today's Communication/Plan
-
Continue postoperative care per
NG tube remains.
IV fluids.
Increase activity
Monitor hemoglobin
Follow electrolyte
Assessment / Plan
Assessment / Plan
Impression:
Presentation with abdominal pain, distention, nausea and vomiting
Splenic flexure mass completely obstructing
Constipation
Chronic normocytic anemia
Other conditions
Essential hypertension.
Dyslipidemia.
Hypothyroidism on replacement
Chronic low back pain
Plan
Obstructive left-sided/splenic flexure colon mass
Patient reported screening colonoscopy about [address] scan findings consistent with large mass size of 3 x [address] scan of the chest with no evidence of distant disease.
Currently symptomatically controlled with no upper gastrointestinal symptoms while NPO.
Status post extended right colectomy on 07/08.
Postoperative care as per surgery
NG tube remains.
Benites catheter removed 07/10
Maintain IV fluids and follow electrolytes
Increase activity
Follow path report
Chronic normocytic anemia.
Follow hemoglobin.
Check iron levels, B12, folate
Essential hypertension.
- Hold Losartan, nebivolol
IV hydralazine if required
HLD
- hold pravastatin
Hypothyroid
- hold LT4
Chronic LBP
on PRN IV narcotic analgesia for BWO
- T12 compression Fx new form 2020 but age indeterminate.
- Mild compression fractures. L2 is stable from 11/05/2020
- Hold of NSAIDS for now
DVT Px: SQH
Code: DNR per patient witnessed by GARMENT CUTTER
Anticipated Discharge: > 48 hours
Subjective/Interval History
-
Date of Service: July 10, 2024
Objective Data
-
Labs:
Laboratory Results
07/10/24
06:20
WBC 11.4 H
Hgb 9.7 L
Hct 29.2 L
Plt Count 299
Sodium 138
Potassium 3.5
Chloride 99
Carbon Dioxide 26
BUN 30 H
Creatinine 0.8
Glucose 64 L
Calcium 8.6
Vital Signs:
Vital Signs
Temp Pulse Resp BP Pulse Ox
98.2 F 84 16 135/53 95
07/10/24 07:35 07/10/24 07:35 07/10/24 07:35 07/10/24 07:35 07/10/24 09:00
I&O
07/09/24 07/10/24 07/11/24
06:59 06:59 06:59
Intake Total 1285 / 1285 2300 / 2300
Output Total 825 / 825 1475 / 1475
Balance 460 / 460 825 / 825
Physical Exam
-
General: Well Developed and No Apparent Distress
HEENT: Normocephalic, Atraumatic and Moist Mucous Membranes
Respiratory: Clear to Auscultation
Cardiac: Regular Rhythm and S1/S2; Negative Murmur, Rub or Gallop
GI: Soft, Nontender, Nondistended and Normal Bowel Sounds; Negative Organomegaly
Rectal: Deferred by Provider
Musculoskeletal: No Clubbing, No Cyanosis and No Edema
Skin: Negative Rash
Neuro: Nonfocal/Grossly Intact
[2024-07-10 15:30] VITALS: BP 138/72
[2024-07-10 23:40] VITALS: BP 185/84
[2024-07-10] MEDS: APRESOLINE 10 MG IV (23:50)
[2024-07-11] VITALS (7 sets, daily range): BP systolic 154–186; BP diastolic 63–85; PULSE 79–80; O2SAT 96–98; BMI 29.1
[2024-07-11] MEDS: TORADOL 10 MG IV ×4 (02:55→21:13)
[2024-07-11] MEDS: NORMOSOL-R/PLASMALYTE-A 1000 IV (06:20)
[2024-07-11] MEDS: HEPARIN 5000 UNITS SC ×2 (08:34→21:11)
[2024-07-11 08:38] LABS: % Basophils 0.2 % (0-2); % Eosinophils 1.4 % (0-6); % Immature Granulocytes 0.9 % (0-0.5); % Lymphocytes 13.8 % (20.5-51.1); % Monocytes 9.8 % (1.7-9.3); % Neutrophils 73.9 % (42.2-75.2); Absolute Eosinophils 0.1 10^3/uL (0-0.7); Absolute Immature Granulocytes 0.1 10^3/uL (0-0.05); Absolute Lymphocytes 1.2 10^3/uL (1.2-3.4); Absolute Monocytes 0.8 10^3/uL (0.1-0.6); Absolute Neutrophils 6.3 10^3/uL (1.4-6.5); Hematocrit 29.9 % (37.0-47.0); Hemoglobin 9.9 g/dL (12.0-16.0); Mean Corp Hgb Conc. 33.1 g/dL (33.0-37.0); Mean Corpuscular Hgb 29.9 pg (27.0-31.0); Mean Corpuscular Volume 90.3 fL (81.0-99.0); Mean Platelet Volume 10.1 fL (7.4-10.4); Nucleated Red Blood Cells % 0 %; Platelet Count 312 10^3/uL (130-400); Red Blood Cell Count 3.31 10^6/uL (4.20-5.40); Red Cell Dist. Width 13.6 % (11.5-14.5); White Blood Cell Count 8.5 10^3/uL (4.8-10.8)
[2024-07-11] MEDS: APRESOLINE 10 MG IV (08:40)
[2024-07-11] MEDS: CHLORASEPTIC/SORE THROAT SPRAY 1 SPRAY PO ×2 (08:41→11:22)
[2024-07-11] MEDS: NSS (PRESERVATIVE FREE) 10 ML IV (08:42)
[2024-07-11] MEDS: PROTONIX IV 40 MG IV (08:42)
--- NOTE | 2024-07-11 09:25 | W.PN.CRS1 ---
Today's Communication / Plan
-
ngt clamping trial
Assessment/Plan
-
POD#3 partial large bowel obstruction due to mass (likely colon cancer)
Hgb 8.5 (11.4), Hgb 9.9 (9.7)
vitals normal
-NGT clamping trial (done by provider at 8:30). Clamp for 6 hours, if removed, then NPO.
- Continue IV fluids
- OR pathology pending
- Restart heparin subcu for DVT prophylaxis. Teds and SCDs in place
- Physical therapy and Occupational Therapy ordered
- Pain control: Tylenol and Toradol standing, Dilaudid as needed
- Appreciate hospitalist
Subjective Data
Procedure
07/08/2024- partial large bowel obstruction due to mass (likely colon cancer)
Subjective Data
Date of Service: July 11, 2024
Patient states she has some mild abdominal pain. Her throat is bothering her. She denies nausea or vomiting. She is having gas and bowel movements.
Objective Data
-
Vital Signs
Temp Pulse Resp BP Pulse Ox
100.0 F 97 16 186/85 90
07/11/24 07:35 07/11/24 08:40 07/11/24 07:35 07/11/24 08:40 07/11/24 07:35
Intake & Output
07/10/24 07/11/24 07/12/24
06:59 06:59 06:59
Intake Total 2300 / 2300 1140 / 1140
Output Total 1475 / 1475 775 / 775
Balance 825 / 825 365 / 365
Intake:
Oral fluids 100 / 100
IV fluids (Total) 1920 / 1920 960 / 960
IV piggybacks 100 / 100
Amount instilled into GI Tube ( 180 / 180 180 / 180
Total)
[place] Sump 180 / 180 180 / 180
Output:
Gastrointestinal tube output ( 825 / 825 575 / 575
Total)
[place] Sump 825 / 825 575 / 575
Urine, Benites 650 / 650
Urine, Voided 200 / 200
Other:
Number of approximated SMALL 2
amounts of urine
Number of approximated LARGE 1
amounts of urine
How many times incontinent 1
MODERATE amount urine
Lab Results
07/11/24 07:36
Physical Exam
-
General: No Acute Distress and AOx3
Abdomen: Soft, Non Distended and Tender (mild around incisions)
Skin: Warm and Dry
Incision: Clear, Dry, Intact
[2024-07-11 10:31] LABS: Blood Urea Nitrogen 19 mg/dl (7-17); Calcium 8.3 mg/dl (8.4-10.2); Carbon Dioxide 23 mmol/L (22-30); Chloride 101 mmol/L (98-107); Estimated Creatinine Clearance 56 ml/min; Glucose 67 mg/dl (70-99); Potassium 3.1 mmol/L (3.5-5.1); Sodium 139 mmol/L (135-145); eGFR > 60.00
--- NOTE | 2024-07-11 13:39 | W.PN.HOSP.TC ---
Today's Communication/Plan
-
Change IV fluids to D5 half-normal with potassium
NG tube clamping.
IV iron
Assessment / Plan
Assessment / Plan
Impression:
Presentation with abdominal pain, distention, nausea and vomiting
Splenic flexure mass completely obstructing
Constipation
Chronic normocytic anemia
Other conditions
Essential hypertension.
Dyslipidemia.
Hypothyroidism on replacement
Chronic low back pain
Plan
Obstructive left-sided/splenic flexure colon mass
Patient reported screening colonoscopy about [address] scan findings consistent with large mass size of 3 x [address] scan of the chest with no evidence of distant disease.
Currently symptomatically controlled with no upper gastrointestinal symptoms while NPO.
Status post extended right colectomy on 07/08.
Postoperative care as per surgery
NG tube clamping of the 07/11
Benites catheter removed 07/10
Noted with hypoglycemia. Change IV fluids to D5 half-normal with potassium. Follow BMP
Increase activity
Follow path report
Chronic normocytic anemia.
Iron deficiency
Start IV iron
Essential hypertension.
- Hold Losartan, nebivolol
IV hydralazine if required
HLD
- hold pravastatin
Hypothyroid
- hold LT4
Chronic LBP
on PRN IV narcotic analgesia for BWO
- T12 compression Fx new form 2020 but age indeterminate.
- Mild compression fractures. L2 is stable from 11/05/2020
- Hold of NSAIDS for now
DVT Px: SQH
Code: DNR per patient witnessed by RETAIL COSMETICS SALES BEAUTY ADVISOR
Anticipated Discharge: > 48 hours
Subjective/Interval History
-
Date of Service: July 11, 2024
Objective Data
-
Labs:
Laboratory Results
07/11/24
07:36
WBC 8.5
Hgb 9.9 L
Hct 29.9 L
Plt Count 312
Sodium 139
Potassium 3.1 L
Chloride 101
Carbon Dioxide 23
BUN 19 H
Creatinine 0.6
Glucose 67 L
Calcium 8.3 L
Vital Signs:
Vital Signs
Temp Pulse Resp BP Pulse Ox
100.0 F 97 16 186/85 95
07/11/24 07:35 07/11/24 08:40 07/11/24 07:35 07/11/24 08:40 07/11/24 09:59
I&O
07/10/24 07/11/24 07/12/24
06:59 06:59 06:59
Intake Total 2300 / 2300 1140 / 1140
Output Total 1475 / 1475 775 / 775
Balance 825 / 825 365 / 365
Physical Exam
-
General: Well Developed and No Apparent Distress
HEENT: Normocephalic, Atraumatic and Moist Mucous Membranes
Respiratory: Clear to Auscultation
Cardiac: Regular Rhythm and S1/S2; Negative Murmur, Rub or Gallop
GI: Soft, Nontender, Nondistended and Normal Bowel Sounds; Negative Organomegaly
Rectal: Deferred by Provider
Musculoskeletal: No Clubbing, No Cyanosis and No Edema
Skin: Negative Rash
Neuro: Nonfocal/Grossly Intact
[2024-07-11] MEDS: FERRLECIT 110 MG IV (14:24)
[2024-07-11] MEDS: D5/0.45%NSS with KCL 20 MEQ 1000 IV (14:37)
--- NOTE | 2024-07-11 15:36 | CM ---
Addendum entered by Ema Sal RN 07/11/24 15:47:
Message and TT left for [facility] [employer] for bed availability on Sunday.
Original Note:
Reviewed the chart notes. PT recommending SNF vs home health. Patient leaning towards SNF. Referral previously sent to [facility]. NGT clamped today. CM continues to be available to patient/family and is monitoring medical plan for needs at discharge.
Plan: Discharge to SNF once bed secured. No prior auth required.
--- NOTE | 2024-07-11 18:10 | PTCARENOTE ---
NGT removed at 1430, pt tolerating clear liquid diet
[2024-07-11] MEDS: MELATONIN 5 MG PO (21:51)
[2024-07-12] MEDS: D5/0.45%NSS with KCL 20 MEQ 1000 IV (01:57)
[2024-07-12] MEDS: TORADOL 10 MG IV ×4 (02:01→20:11)
[2024-07-12 06:00] VITALS: BMI 29.4
[2024-07-12 07:00] VITALS: BP 138/79
[2024-07-12] MEDS: NSS (PRESERVATIVE FREE) 10 ML IV (08:33)
[2024-07-12] MEDS: PROTONIX IV 40 MG IV (08:34)
[2024-07-12] MEDS: HEPARIN 5000 UNITS SC ×2 (08:34→20:12)
[2024-07-12 08:57] LABS: % Basophils 0.3 % (0-2); % Eosinophils 5.9 % (0-6); % Immature Granulocytes 1.7 % (0-0.5); % Lymphocytes 17.4 % (20.5-51.1); % Monocytes 11.9 % (1.7-9.3); % Neutrophils 62.8 % (42.2-75.2); Absolute Eosinophils 0.4 10^3/uL (0-0.7); Absolute Immature Granulocytes 0.1 10^3/uL (0-0.05); Absolute Lymphocytes 1.3 10^3/uL (1.2-3.4); Absolute Monocytes 0.9 10^3/uL (0.1-0.6); Absolute Neutrophils 4.7 10^3/uL (1.4-6.5); Hematocrit 27.6 % (37.0-47.0); Hemoglobin 9.2 g/dL (12.0-16.0); Mean Corp Hgb Conc. 33.3 g/dL (33.0-37.0); Mean Corpuscular Hgb 29.8 pg (27.0-31.0); Mean Corpuscular Volume 89.3 fL (81.0-99.0); Mean Platelet Volume 9.8 fL (7.4-10.4); Nucleated Red Blood Cells % 0 %; Platelet Count 328 10^3/uL (130-400); Red Blood Cell Count 3.09 10^6/uL (4.20-5.40); Red Cell Dist. Width 13.6 % (11.5-14.5); White Blood Cell Count 7.5 10^3/uL (4.8-10.8)
[2024-07-12 09:35] LABS: Blood Urea Nitrogen 13 mg/dl (7-17); Calcium 8.3 mg/dl (8.4-10.2); Carbon Dioxide 28 mmol/L (22-30); Chloride 101 mmol/L (98-107); Estimated Creatinine Clearance 56 ml/min; Glucose 111 mg/dl (70-99); Potassium 3.2 mmol/L (3.5-5.1); Sodium 135 mmol/L (135-145); eGFR > 60.00
--- NOTE | 2024-07-12 09:56 | W.PN.HOSP.TC ---
Today's Communication/Plan
-
no new complications
Diet advancement per surgical team
Assessment / Plan
Assessment / Plan
Impression:
89 woman presented with abdominal pain, distention, nausea and vomiting
Splenic flexure mass completely obstructing
Constipation
Chronic normocytic anemia
Other conditions
Essential hypertension.
Dyslipidemia.
Hypothyroidism on replacement
Chronic low back pain
Plan
1. Obstructive left-sided/splenic flexure colon mass
Patient reported screening colonoscopy about [address] scan findings consistent with large mass size of 3 x [address] scan of the chest with no evidence of distant disease.
Currently symptomatically controlled with no upper gastrointestinal symptoms while NPO.
Status post extended right colectomy on 07/08.
Postoperative care as per surgery
NG tube clamping of the 07/11
Benites catheter removed 07/10
Diet advancement per surgical team
Noted with hypoglycemia.
Change IV fluids to D5 half-normal with potassium. Follow BMP
Increase activity
Follow path report
2. Chronic normocytic anemia - slightly worse after surgery
Iron deficiency
Start IV iron
Follow daily
3. Essential hypertension - chronic
- Hold Losartan, nebivolol
IV hydralazine if required
4. HLD - chronic
- hold pravastatin
5. Hypothyroid - chronic
- hold LT4
6. Chronic LBP
on PRN IV narcotic analgesia for BWO
- T12 compression Fx new form 2020 but age indeterminate.
- Mild compression fractures. L2 is stable from 11/05/2020
- Hold of NSAIDS for now
DVT Px: SQH
Code: DNR per patient witnessed by IT PROGRAMMER ANALYST
Daughter upgdated on plan
Anticipated Discharge: > 48 hours
Subjective/Interval History
-
Date of Service: July 12, 2024
Feels well. No new issues.
Objective Data
-
Labs:
Laboratory Results
07/12/24
08:23
WBC 7.5
Hgb 9.2 L
Hct 27.6 L
Plt Count 328
Sodium 135
Potassium 3.2 L
Chloride 101
Carbon Dioxide 28
BUN 13
Creatinine 0.4 L
Glucose 111 H
Calcium 8.3 L
Vital Signs:
Vital Signs
Temp Pulse Resp BP Pulse Ox
98.2 F 74 20 138/79 95
07/12/24 07:00 07/12/24 07:00 07/12/24 07:00 07/12/24 07:00 07/12/24 07:00
I&O
07/11/24 07/12/24 07/13/24
06:59 06:59 06:59
Intake Total 1140 / 1140 1705 / 1705
Output Total 775 / 775
Balance 365 / 365 1680 / 1680
Review of Systems
-
History Source: Patient
All other systems: Reviewed and negative
Physical Exam
-
General: Well Developed, Well Nourished, No Apparent Distress, Comfortable and Conversant
HEENT: Normocephalic, Nose Appears Normal and Ears Appear Normal
Respiratory: Decreased Breath Sounds
Cardiac: Regular Rhythm and S1/S2
GI: Soft, Nontender and Nondistended
Musculoskeletal: No Clubbing, No Cyanosis and No Edema
Skin: Warm and Dry; Negative Rash
Neuro: Awake, Alert and Oriented
Psych: Calm
Data Reviewed
-
Labs: Labs Reviewed by me
--- NOTE | 2024-07-12 10:36 | CM ---
Patient and daughter seen at bedside on . Plan continues to be [facility] sunday if bed available. Patient and daughter updated. CM will continue to follow for discharge planning needs.
Plan; SNF when medically appropriate and CM will follow for bed availability
[2024-07-12] MEDS: KCL 20 MEQ PO (10:49)
[2024-07-12] MEDS: D5/0.45%NSS with KCL 20 MEQ IV (10:49)
--- NOTE | 2024-07-12 12:46 | W.PN.GS2 ---
Addendum entered and electronically signed by Jack Foreman MD 07/12/24 14:26:
I saw and examined the patient.
The Dispatcher Refinery's note was reviewed and I agree with the note.
Comment: Deion cld for two meals, no complaints. OOBTC. Pain controlled. Exam approp, incisions cdi. Adv to FLD
Original Note:
Today's Communication / Plan
-
Advance diet
Assessment / Plan
-
89-year-old female who presented with partial but likely high-grade large bowel obstruction secondary to mass visualized just proximal to the splenic flexure.
POD #4 robotic extended right colectomy
AFVSS
Progressing well postoperatively with signs of good bowel recovery
H/H relatively stable
Hypokalemia present
Plan:
OK for FLD
Ok to d/c IVF now that tolerating PO
Replace KCl
OOB/Ambulate. PT/OT/CM following, anticipate rehab on d/c
C/W toradol, add prn tylenol/tramadol
OK to resume home PO meds as appropriate
Medical management as per primary team
Subjective Data
-
Date of Service: July 12, 2024
Patient seen and examined at bedside with Dr. Foreman. Denies n/v. OOB to chair. Minimal abdominal discomfort if any. Passing flatus and some loose stools.
Objective Data
-
Intake and Output
07/11/24 07/12/24 07/13/24
06:59 06:59 06:59
Intake Total 1140 / 1140 1705 / 1705
Output Total 775 / 775
Balance 365 / 365 1680 / 1680
Intake:
Oral fluids 480 / 480
IV fluids (Total) 960 / 960 1100 / 1100
IV piggybacks 125 / 125
Amount instilled into GI Tube ( 180 / 180
Total)
[place] Sump 180 / 180
Output:
Gastrointestinal tube output ( 575 / 575
Total)
[place] Sump 575 / 575
Urine, Voided 200 / 200
Other:
Number of approximated SMALL 2
amounts of urine
Number of approximated MODERATE 1
amounts of urine
Number of approximated LARGE 1
amounts of urine
How many times incontinent 1
MODERATE amount urine
Number of unmeasured liquid
stools
Rectum 2
Vital Signs
Temp Pulse Resp BP Pulse Ox
98.2 F 74 20 138/79 95
07/12/24 07:00 07/12/24 07:00 07/12/24 07:00 07/12/24 07:00 07/12/24 07:00
Lab Results
07/12/24 08:23
07/12/24 08:23
Calcium 8.3 mg/dl (8.4-10.2) L 07/12/24 08:23
Magnesium 2.2 mg/dl (1.6-2.3) 07/09/24 06:22
Total Bilirubin 1.0 mg/dl (0.2-1.3) 07/05/24 08:28
AST 21 U/L (14-36) 07/05/24 08:28
ALT 13 U/L (0-35) 07/05/24 08:28
Alkaline Phosphatase 69 U/L (38-126) 07/05/24 08:28
Total Protein 7.0 g/dl (6.3-8.2) 07/05/24 08:28
Albumin 4.1 g/dl (3.5-5.0) 07/05/24 08:28
Physical Exam
-
NAD
ABD soft, nt, nd
Incisions well approximated with intact glue
Patient has a burns catheter: No
Patient has a central line: No
[2024-07-12] MEDS: FERRLECIT 110 MG IV (14:55)
[2024-07-12] MEDS: ULTRAM 50 MG PO (14:55)
[2024-07-12] MEDS: TYLENOL 1000 MG PO (14:55)
[2024-07-12 15:00] VITALS: BP 179/87
[2024-07-12] MEDS: APRESOLINE 10 MG IV (17:58)
[2024-07-12 18:36] VITALS: BP 104/52
[2024-07-12] MEDS: MELATONIN 5 MG PO (22:55)
[2024-07-12 23:05] VITALS: BP 152/70
[2024-07-13] MEDS: TORADOL IV (04:04)
[2024-07-13] MEDS: SYNTHROID 88 MCG PO (04:28)
[2024-07-13 06:00] VITALS: BMI 29.2
[2024-07-13 06:12] LABS: Hematocrit 28.4 % (37.0-47.0); Hemoglobin 9.4 g/dL (12.0-16.0); Mean Corp Hgb Conc. 33.1 g/dL (33.0-37.0); Mean Corpuscular Hgb 29.8 pg (27.0-31.0); Mean Corpuscular Volume 90.2 fL (81.0-99.0); Mean Platelet Volume 10.1 fL (7.4-10.4); Platelet Count 358 10^3/uL (130-400); Red Blood Cell Count 3.15 10^6/uL (4.20-5.40); Red Cell Dist. Width 13.7 % (11.5-14.5); White Blood Cell Count 7.9 10^3/uL (4.8-10.8)
[2024-07-13 06:45] LABS: Blood Urea Nitrogen 14 mg/dl (7-17); Calcium 8.7 mg/dl (8.4-10.2); Carbon Dioxide 29 mmol/L (22-30); Chloride 101 mmol/L (98-107); Estimated Creatinine Clearance 56 ml/min; Glucose 89 mg/dl (70-99); Potassium 3.5 mmol/L (3.5-5.1); Sodium 136 mmol/L (135-145); eGFR > 60.00
[2024-07-13 07:45] VITALS: BP 177/90
[2024-07-13] MEDS: HEPARIN 5000 UNITS SC ×2 (07:54→21:52)
[2024-07-13] MEDS: PROTONIX IV 40 MG IV (07:56)
[2024-07-13] MEDS: NSS (PRESERVATIVE FREE) 10 ML IV (07:56)
[2024-07-13] MEDS: TORADOL 10 MG IV (07:57)
--- NOTE | 2024-07-13 10:28 | W.PN.GS2 ---
Addendum entered and electronically signed by Jack Foreman MD 07/13/24 10:47:
I saw and examined the patient.
The Plaster Helper's note was reviewed and I agree with the note.
Comment: Did well with fulls. feeling some early satiety but no n/v. Will adv to LRD. Dispo planning
Original Note:
Today's Communication / Plan
-
low residue
rehab planning - likely d/c in AM
Assessment / Plan
-
89-year-old female who presented with partial but likely high-grade large bowel obstruction secondary to mass visualized just proximal to the splenic flexure.
POD #5 robotic extended right colectomy
AFVSS
WBC 7.9. Hgb 9.4.
Plan:
-Advance to low residue with ensure
-OOB/Ambulate. PT/OT/CM following, anticipate rehab on d/c - likely tomorrow
-C/W toradol, add prn tylenol/tramadol
-OK to resume home PO meds as appropriate
-Medical management as per primary team
- OR pathology pending
- Heparin subcu for DVT prophylaxis. Teds and SCDs in place
Subjective Data
-
Date of Service: July 13, 2024
Patient states she feels well. She has mild soreness but no real pain. She has been walking around the unit with her family. Denies nausea or vomiting. Tolerated fulls yesterday.
Objective Data
-
Intake and Output
07/12/24 07/13/24 07/14/24
06:59 06:59 06:59
Intake Total 1705 / 1705
Output Total
Balance 1680 / 1680
Intake:
Oral fluids 480 / 480
IV fluids (Total) 1100 / 1100
IV piggybacks 125 / 125
Output:
Gastrointestinal tube output (
Total)
[place] Sump
Other:
Number of approximated MODERATE 1
amounts of urine
Number of approximated LARGE 1
amounts of urine
Number of unmeasured liquid
stools
Rectum 2
Vital Signs
Temp Pulse Resp BP Pulse Ox
98.4 F 83 20 177/90 97
07/13/24 07:45 07/13/24 07:45 07/13/24 07:45 07/13/24 07:45 07/13/24 07:45
Lab Results
07/13/24 04:40
07/13/24 04:40
Calcium 8.7 mg/dl (8.4-10.2) 07/13/24 04:40
Magnesium 2.2 mg/dl (1.6-2.3) 07/09/24 06:22
Total Bilirubin 1.0 mg/dl (0.2-1.3) 07/05/24 08:28
AST 21 U/L (14-36) 07/05/24 08:28
ALT 13 U/L (0-35) 07/05/24 08:28
Alkaline Phosphatase 69 U/L (38-126) 07/05/24 08:28
Total Protein 7.0 g/dl (6.3-8.2) 07/05/24 08:28
Albumin 4.1 g/dl (3.5-5.0) 07/05/24 08:28
Physical Exam
-
NAD
ABD soft, nt, nd
Incisions well approximated with intact glue
--- NOTE | 2024-07-13 13:45 | W.PN.HOSP.TC ---
Today's Communication/Plan
-
Doing well. Likely discharge tomorrow.
Assessment / Plan
Assessment / Plan
Impression:
89 woman presented with abdominal pain, distention, nausea and vomiting
Splenic flexure mass completely obstructing
Constipation
Chronic normocytic anemia
Other conditions
Essential hypertension.
Dyslipidemia.
Hypothyroidism on replacement
Chronic low back pain
Plan
1. Obstructive left-sided/splenic flexure colon mass
Patient reported screening colonoscopy about [address] scan findings consistent with large mass size of 3 x [address] scan of the chest with no evidence of distant disease.
Currently symptomatically controlled with no upper gastrointestinal symptoms while NPO.
Status post extended right colectomy on 07/08.
Postoperative care as per surgery
NG tube clamping of the 07/11
Benites catheter removed 07/10
Diet advancement per surgical team
Tolerating diet advancement well
Plan is to discharge tomorrow
Noted with hypoglycemia.
Changed IV fluids to D5 half-normal with potassium. Follow BMP
Increase activity
Follow path report
2. Chronic normocytic anemia - slightly worse after surgery, but now stable.
Iron deficiency
Started IV iron
Follow daily
3. Essential hypertension - chronic
- Held Losartan, nebivolol
IV hydralazine if required
Resume after evaluation by PCP as outpatient
4. HLD - chronic
- held pravastatin
Resume as outpatient
5. Hypothyroid - chronic
- held LT4
Resume as outpatient
6. Chronic LBP
on PRN IV narcotic analgesia for BWO
- T12 compression Fx new form 2020 but age indeterminate.
- Mild compression fractures. L2 is stable from 11/05/2020
- Held NSAIDS post sugery
DVT Px: SQH
Code: DNR per patient witnessed by UNIT AID
Daughter/family updated on plan
Anticipated Discharge: Within 24 hours
Subjective/Interval History
-
Date of Service: July 13, 2024
Feels well. Tolerating a diet.
Objective Data
-
Labs:
Laboratory Results
07/13/24
04:40
WBC 7.9
Hgb 9.4 L
Hct 28.4 L
Plt Count 358
Sodium 136
Potassium 3.5
Chloride 101
Carbon Dioxide 29
BUN 14
Creatinine 0.5 L
Glucose 89
Calcium 8.7
Vital Signs:
Vital Signs
Temp Pulse Resp BP Pulse Ox
98.4 F 83 20 177/90 97
07/13/24 07:45 07/13/24 07:45 07/13/24 07:45 07/13/24 07:45 07/13/24 07:45
I&O
07/12/24 07/13/24 07/14/24
06:59 06:59 06:59
Intake Total 1705 / 1705
Output Total
Balance 1680 / 1680
Review of Systems
-
History Source: Patient
All other systems: Reviewed and negative
Physical Exam
-
General: Well Developed, Well Nourished, No Apparent Distress and Comfortable
HEENT: Normocephalic, [place] Conjunctivae, Nose Appears Normal and Ears Appear Normal
Respiratory: Clear to Auscultation
Cardiac: Regular Rhythm and S1/S2
GI: Soft, Nontender and Nondistended
Musculoskeletal: No Clubbing and No Cyanosis
Skin: Warm and Dry
Neuro: Awake, Alert and Oriented
Psych: Calm
Data Reviewed
-
Labs: Labs Reviewed by me
[2024-07-13] MEDS: FERRLECIT 110 MG IV (14:29)
[2024-07-13 15:33] VITALS: BP 157/74
[2024-07-13] MEDS: ULTRAM 50 MG PO (21:51)
[2024-07-13] MEDS: MELATONIN 5 MG PO (23:08)
[2024-07-13 23:20] VITALS: BP 138/81
[2024-07-14] MEDS: AMBIEN 5 MG PO (00:29)
[2024-07-14 06:00] VITALS: BMI 29.2
[2024-07-14] MEDS: SYNTHROID 88 MCG PO (06:12)
[2024-07-14 07:23] VITALS: BP 157/92
[2024-07-14] MEDS: HEPARIN 5000 UNITS SC (07:29)
[2024-07-14] MEDS: PROTONIX IV 40 MG IV (07:30)
[2024-07-14] MEDS: NSS (PRESERVATIVE FREE) 10 ML IV (07:30)
--- NOTE | 2024-07-14 09:29 | W.PN.CRS1 ---
Today's Communication / Plan
-
As below
Assessment/Plan
-
89-year-old female with PMH of HTN, HLD, low back pain who presented with partial but likely high-grade large bowel obstruction secondary to mass visualized just proximal to the splenic flexure.
POD #4 robotic extended right colectomy
AFVSS
No labs today
�Continue low residue
� Pain control with Tylenol and tramadol as needed; will switch to lozenges as needed for throat pain
� Will start Colace twice daily
�Continue SQH for DVT PPx
�OOB/Ambulate. PT/OT/CM following
�Appreciate hospitalist
Dispo: Pending rehab placement; will need 2 weeks of 2.5 mg Eliquis twice daily for extended DVT PPx
Subjective Data
Procedure
07/08/2024- partial large bowel obstruction due to mass (likely colon cancer)
Subjective Data
Date of Service: July 14, 2024
No overnight events.
Pain controlled.
Denies nausea/vomiting. Tolerating diet.
+flatus �BM +voiding
Pt is OOB.
Objective Data
-
Vital Signs
Temp Pulse Resp BP Pulse Ox
98.0 F 95 17 157/92 96
07/14/24 07:23 07/14/24 07:23 07/14/24 07:23 07/14/24 07:23 07/14/24 07:23
Intake & Output
07/13/24 07/14/24 07/15/24
06:59 06:59 06:59
Intake Total 840 / 840 180 / 180
Balance 840 / 840 180 / 180
Intake:
Oral fluids 840 / 840 180 / 180
IV fluids (Total) 0 / 0
IV piggybacks 0 / 0
Other:
Number of approximated MODERATE 3
amounts of urine
Number of approximated LARGE 1 1
amounts of urine
Lab Results
07/13/24 04:40
07/13/24 04:40
Physical Exam
-
General: No Acute Distress and AOx3
HEENT: Grossly Normal
Abdomen: Soft, Non Distended, Tender (Appropriately tender near midline incision), No Guarding and No Rebound
Wound: No Signs of Infection and Dressing Changed (Midline incision well-approximated with brian, Aquacel taken down)
[2024-07-14] MEDS: COLACE 100 MG PO (09:55)
[2024-07-14] MEDS: ANESTHETIC LOZENGE 1 LOZENGE PO ×2 (09:58→15:03)
--- NOTE | 2024-07-14 10:47 | CM ---
Addendum entered by Ema Sal RN 07/14/24 13:11:
[facility] able to accept the patient. Patient's family will provide transportation.
Plan: Discharge to [facility] today.
Call report to: [phone]
Fax report to: [phone]
Original Note:
Reviewed the chart notes and spoke with the patient at the bedside. Patient tolerating LRD. [facility] regarding [facility] today. CM continues to be available to patient/family and is monitoring medical plan for
needs at discharge.
Plan: Discharge to [facility] when bed secured. No precert required.
[2024-07-14 12:53] VITALS: BP 167/85; PULSE 82; O2SAT 97
--- NOTE | 2024-07-14 14:14 | W.DS.TRANS ---
DC Summary - Family Court Counsellor
-
Discharge Instructions:
Discharge Diagnosis/Procedures partial large bowel obstruction due to mass (
likely colon cancer)
Diet Low Residue
Activity No strenuous activity
Additional Activity No lifting over 10lbs (gallon of milk)
Driving Restrictions Not until seen by your Dr
Bathing Restrictions OK to Shower
Wound Care Tylenol or Ibuprofen as needed for pain. Maximum
dose of Tylenol is 4,000mg in 24 hours. Maximum
dose of Ibuprofen is 3,200mg in 24 hours.
Instructions: Apixaban
Low-fiber diet
Stand-Alone Forms:
Changes to Home Medications: Yes
Discharge Medications:
DC Medications w/original date entered in [facility]
calcium 600 mg (as carbonate)-vit D3 20 mcg (800 unit) chewable tablet (Caltrate plus D) 1 tab PO DAILY 07/05/24
levothyroxine 88 mcg tablet 88 mcg PO DAILY 07/05/24
losartan 50 mg tablet 50 mg PO DAILY 07/05/24
multivitamin-ferrous fumarate-folic acid 18 mg-400 mcg tablet (Centrum Women) 1 tab PO DAILY 07/05/24
nebivolol 5 mg tablet 5 mg PO DAILY 07/05/24
omega 3-oxw-scv-fish oil 1,200 mg (144 mg-216 mg) capsule (Fish Oil) 1 cap PO DAILY 07/05/24
omeprazole 20 mg capsule,delayed release 20 mg PO DAILY 07/05/24
pravastatin 20 mg tablet 20 mg PO QPM 07/05/24
tolterodine 4 mg capsule,extended release 24 hr 4 mg PO DAILY 07/05/24
apixaban 2.5 mg tablet (Eliquis) 2.5 mg PO BID 2 weeks #28 tabs 07/14/24
tramadol 50 mg tablet 50 mg PO TIDPRN PRN moderate pain #14 tabs 07/14/24
zolpidem 5 mg tablet 5 mg PO HSPRN PRN insomnia #15 tabs 07/14/24
Home Medication Changes
Eliquis for DVT prophylaxis
Pending Results: Yes
Additional Pending Results:
Surgical path
[2024-07-14] MEDS: COZAAR 50 MG PO (14:56)
[2024-07-14] MEDS: FERRLECIT 110 MG IV (14:56)
[2024-07-14 14:57] VITALS: BP 136/72
[2024-07-14] MEDS: TYLENOL 1000 MG PO (17:41)
== END 2024-07-14 18:30 | DRG 330 ==
LOC: 2 SOUTH 12:39
PROVIDERS: Internal Medicine; Physician Assistant; Registered Nurse; Surgery; ADMITTING PHYSICIAN Internal Medicine; ATTENDING PHYSICIAN Internal Medicine; EMERGENCY PHYSICIAN Emergency Medicine; FAMILY PHYSICIAN Internal Medicine; OTHER PHYSICIAN Surgery
PROC: 0DBF0ZZ Excision of Right Large Intestine, Open Approach (ICD-10-PCS; 2024-07-08)
DX: C18.9 Malignant neoplasm of colon, unspecified (principal); M48.54XA Collapsed vertebra, not elsewhere classified, thoracic region, initial encounter for fracture; I10 Essential (primary) hypertension; E78.00 Pure hypercholesterolemia, unspecified; E03.9 Hypothyroidism, unspecified; G89.29 Other chronic pain; Z66 Do not resuscitate; Z88.5 Allergy status to narcotic agent; Z79.899 Other long term (current) drug therapy; Z79.890 Hormone replacement therapy; E61.1 Iron deficiency; K21.9 Gastro-esophageal reflux disease without esophagitis; D63.0 Anemia in neoplastic disease
CPT/HCPCS: 88309; 71260; 74018; 74177; 80048; 80053; 82378; 82607; 82728; 82746; 83540; 83550; 83690; 83735; 85025; 85027; 85610; 85730; 86301; 86850; 86900; 86901; 88342; 93005; 96361; 96374; 97116; 97163; 97167; 97535; 99285; C1776; J1335; J2916; Q9967

== ENCOUNTER → 2024-07-17 11:32 | Outpatient (REF) | payer OTHER, MEDICARE, SELFPAY ==
[2024-07-17 13:17] LABS: Hematocrit 25.8 % (37.0-47.0); Hemoglobin 8.4 g/dL (12.0-16.0); Mean Corp Hgb Conc. 32.6 g/dL (33.0-37.0); Mean Corpuscular Hgb 30.2 pg (27.0-31.0); Mean Corpuscular Volume 92.8 fL (81.0-99.0); Mean Platelet Volume 10.3 fL (7.4-10.4); Platelet Count 400 10^3/uL (130-400); Red Blood Cell Count 2.78 10^6/uL (4.20-5.40); White Blood Cell Count 14.7 10^3/uL (4.8-10.8)
[2024-07-17 13:20] LABS: Blood Urea Nitrogen 16 mg/dl (7-17); Carbon Dioxide 29 mmol/L (22-30); Chloride 97 mmol/L (98-107); Glucose 97 mg/dl (70-99); Sodium 134 mmol/L (135-145); eGFR > 60.00
[2024-07-17 14:27] LABS: % Basophils 0.7 % (0-2); % Eosinophils 3.7 % (0-6); % Immature Granulocytes 7.8 % (0-0.5); % Lymphocytes 13.8 % (20.5-51.1); % Monocytes 11.3 % (1.7-9.3); % Neutrophils 62.7 % (42.2-75.2); Absolute Basophils 0.1 10^3/uL (0-0.2); Absolute Eosinophils 0.5 10^3/uL (0-0.7); Absolute Immature Granulocytes 1.2 10^3/uL (0-0.05); Absolute Monocytes 1.7 10^3/uL (0.1-0.6); Absolute Neutrophils 9.3 10^3/uL (1.4-6.5); Nucleated Red Blood Cells % 0 %
== END ==
LOC: OLABP 11:32
PROVIDERS: ATTENDING PHYSICIAN Family Medicine
DX: Z48.815 Encounter for surgical aftercare following surgery on the digestive system (principal); K56.601 Complete intestinal obstruction, unspecified as to cause; E78.5 Hyperlipidemia, unspecified; I10 Essential (primary) hypertension; E03.9 Hypothyroidism, unspecified; M54.50 Low back pain, unspecified; D63.8 Anemia in other chronic diseases classified elsewhere
CPT/HCPCS: 36415; 80048; 85025

== ENCOUNTER → 2024-07-21 10:48 | Outpatient (REF) | payer OTHER, MEDICARE, SELFPAY ==
[2024-07-21 11:12] LABS: % Basophils 0.4 % (0-2); % Eosinophils 3.5 % (0-6); % Immature Granulocytes 2.7 % (0-0.5); % Lymphocytes 10.9 % (20.5-51.1); % Monocytes 9.4 % (1.7-9.3); % Neutrophils 73.1 % (42.2-75.2); Absolute Basophils 0.1 10^3/uL (0-0.2); Absolute Eosinophils 0.6 10^3/uL (0-0.7); Absolute Immature Granulocytes 0.5 10^3/uL (0-0.05); Absolute Lymphocytes 1.9 10^3/uL (1.2-3.4); Absolute Monocytes 1.6 10^3/uL (0.1-0.6); Absolute Neutrophils 12.5 10^3/uL (1.4-6.5); Hematocrit 25.9 % (37.0-47.0); Hemoglobin 8.1 g/dL (12.0-16.0); Mean Corp Hgb Conc. 31.3 g/dL (33.0-37.0); Mean Corpuscular Hgb 30.3 pg (27.0-31.0); Nucleated Red Blood Cells % 0 %; Platelet Count 383 10^3/uL (130-400); Red Blood Cell Count 2.67 10^6/uL (4.20-5.40); Red Cell Dist. Width 16.5 % (11.5-14.5); White Blood Cell Count 17.1 10^3/uL (4.8-10.8)
== END ==
LOC: OLABP 10:48
PROVIDERS: ATTENDING PHYSICIAN Family Medicine
DX: Z48.815 Encounter for surgical aftercare following surgery on the digestive system (principal); K56.601 Complete intestinal obstruction, unspecified as to cause; E78.5 Hyperlipidemia, unspecified; I10 Essential (primary) hypertension; E03.9 Hypothyroidism, unspecified; M54.50 Low back pain, unspecified; D63.8 Anemia in other chronic diseases classified elsewhere
CPT/HCPCS: 36415; 85025

== ENCOUNTER → 2024-07-22 08:59 | Outpatient (REF) | payer OTHER, MEDICARE, SELFPAY ==
[2024-07-22 09:34] LABS: Procalcitonin < 0.05 ng/ml (0.0-0.25)
[2024-07-22 09:36] LABS: % Basophils 0.5 % (0-2); % Eosinophils 3.7 % (0-6); % Immature Granulocytes 2.8 % (0-0.5); % Lymphocytes 12.4 % (20.5-51.1); % Monocytes 8.8 % (1.7-9.3); % Neutrophils 71.8 % (42.2-75.2); Absolute Basophils 0.1 10^3/uL (0-0.2); Absolute Eosinophils 0.6 10^3/uL (0-0.7); Absolute Immature Granulocytes 0.4 10^3/uL (0-0.05); Absolute Lymphocytes 1.9 10^3/uL (1.2-3.4); Absolute Monocytes 1.3 10^3/uL (0.1-0.6); Hematocrit 25.2 % (37.0-47.0); Mean Corp Hgb Conc. 31.7 g/dL (33.0-37.0); Mean Corpuscular Hgb 30.4 pg (27.0-31.0); Mean Corpuscular Volume 95.8 fL (81.0-99.0); Nucleated Red Blood Cells % 0 %; Platelet Count 379 10^3/uL (130-400); Red Blood Cell Count 2.63 10^6/uL (4.20-5.40); Red Cell Dist. Width 16.6 % (11.5-14.5); White Blood Cell Count 15.3 10^3/uL (4.8-10.8)
[2024-07-22 11:21] LABS: Erythrocyte Sed Rate 79 mm/hour (0-20)
[2024-07-22 12:28] LABS: Blood Urea Nitrogen 14 mg/dl (7-17); Calcium 9.1 mg/dl (8.4-10.2); Carbon Dioxide 28 mmol/L (22-30); Chloride 103 mmol/L (98-107); Glucose 99 mg/dl (70-99); Potassium 4.2 mmol/L (3.5-5.1); Sodium 132 mmol/L (135-145); eGFR > 60.00
== END ==
LOC: OLABP 08:59
PROVIDERS: ATTENDING PHYSICIAN Family Medicine
DX: Z48.815 Encounter for surgical aftercare following surgery on the digestive system (principal); K56.601 Complete intestinal obstruction, unspecified as to cause; E78.5 Hyperlipidemia, unspecified; I10 Essential (primary) hypertension; E03.9 Hypothyroidism, unspecified; M54.50 Low back pain, unspecified; D63.8 Anemia in other chronic diseases classified elsewhere
CPT/HCPCS: 36415; 80048; 84145; 85025; 85652; 86140

== ENCOUNTER 2024-07-23 02:38 | Observation (INO) | payer MEDICARE, SELFPAY ==
[2024-07-22 15:56] VITALS: BP 142/73
[2024-07-22 16:14] LABS: % Basophils 0.5 % (0-2); % Eosinophils 3.5 % (0-6); % Immature Granulocytes 2.8 % (0-0.5); % Monocytes 9.4 % (1.7-9.3); % Neutrophils 72.8 % (42.2-75.2); Absolute Basophils 0.1 10^3/uL (0-0.2); Absolute Eosinophils 0.5 10^3/uL (0-0.7); Absolute Immature Granulocytes 0.4 10^3/uL (0-0.05); Absolute Lymphocytes 1.5 10^3/uL (1.2-3.4); Absolute Monocytes 1.3 10^3/uL (0.1-0.6); Absolute Neutrophils 9.7 10^3/uL (1.4-6.5); Hematocrit 26.1 % (37.0-47.0); Hemoglobin 8.5 g/dL (12.0-16.0); Mean Corp Hgb Conc. 32.6 g/dL (33.0-37.0); Mean Corpuscular Hgb 30.8 pg (27.0-31.0); Mean Corpuscular Volume 94.6 fL (81.0-99.0); Mean Platelet Volume 9.4 fL (7.4-10.4); Nucleated Red Blood Cells % 0 %; Platelet Count 387 10^3/uL (130-400); Red Blood Cell Count 2.76 10^6/uL (4.20-5.40); Red Cell Dist. Width 16.6 % (11.5-14.5); White Blood Cell Count 13.3 10^3/uL (4.8-10.8)
[2024-07-22 16:31] LABS: ALT (SGPT) 13 U/L (0-35); AST (SGOT) 19 U/L (14-36); Albumin 3.1 g/dl (3.5-5.0); Alkaline Phosphatase 71 U/L (38-126); Blood Urea Nitrogen 14 mg/dl (7-17); Calcium 9.2 mg/dl (8.4-10.2); Carbon Dioxide 30 mmol/L (22-30); Chloride 102 mmol/L (98-107); Glucose 154 mg/dl (70-99); Potassium 4.4 mmol/L (3.5-5.1); Sodium 134 mmol/L (135-145); Total Bilirubin 0.6 mg/dl (0.2-1.3); Total Protein 5.7 g/dl (6.3-8.2); eGFR > 60.00
--- NOTE | 2024-07-22 19:02 | ED.GENMED ---
History of Present Illness
General
Chief Complaint: Abnormal Lab Value
Time Seen by Provider: 07/22/24 19:02
History of Present Illness
History of Present Illness:
TIME OF INITIAL ENCOUNTER: 7:05 PM
HPI: The patient reportedly had a white blood cell count elevation and was sent here from [facility] for further evaluation. The patient was admitted 3 weeks ago with a completely obstructing splenic flexure max and had partial colectomy. Of note,
the patient was discharged with a white count of 7.9, 4 days later was 14.7, and 4 days (yesterday) after that was 17.1. This morning was 15.3. The patient has no abdominal complaints. She has a mild sore throat.
EXAM:
GENERAL: Well appearing in no distress
HEENT: Moist oral mucosa, minimal erythema if any with no exudate
CARDIOVASCULAR: No murmurs, normal heart rate, regular rhythm, No chest wall tenderness
PULMONARY: No respiratory distress, breath sounds are clear and equal
ABDOMEN: Soft with no peritoneal signs, no tenderness, brian present in the midline, bilateral ecchymosis in the lower quadrants noted but no tenderness
NEUROLOGIC: Excellent strength all extremities, no coordination deficits
PSYCHIATRIC: Appropriate mental status, normal insight and judgement
EXTREMITIES: Nontender, no edema, moves all extremities equally
SKIN: No rash, no lesions
NUMBER AND COMPLEXITY OF PROBLEMS ADDRESSED AT THE ENCOUNTER
� Chronic conditions affecting care: High blood pressure, dyslipidemia, hypothyroidism, chronic low back pain, iron deficiency anemia
� Acute Exacerbation and/or Progression of Chronic Illness: This is an acute problem
� Differential Diagnosis includes: Surgical complication, nonspecific leukocytosis, viral syndrome, no symptoms consistent with UTI or pneumonia
AMOUNT AND/OR COMPLEXITY OF DATA TO BE REVIEWED AND ANALYZED
� I performed an independent evaluation of and my interpretation is:
EKG:
CT: CT imaging shows acute uncomplicated diverticulitis
X-rays:
Laboratory Studies: White count 13.3, hemoglobin 8.5, chemistries unremarkable
Other: Ultrasound shows no DVT bilateral lower extremities
� Review of other/old records: I reviewed the discharge summary from earlier this month. 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
� Clinical information was obtained by an independent historian: None needed but I did review notes from [facility], also prolactin level was very low
� Prescriptions/Medications Considered but not given:
� Further testing considered but not performed:
RISK OF COMPLICATIONS AND/OR MORBIDITY OR MORTALITY OF PATIENT MANAGEMENT
� Social determinants of health affecting care: Currently staying at [facility] for rehab
� Discussion with other providers: Discussed case with Dr. Benton CT imaging with oral and IV contrast as well as lower extremity Dopplers and a urinalysis. Dr. Camejo at 12:22 AM.
� Escalation of care including admission/observation vs risk of discharge considered:
ANY OTHER UPDATES:
Had extensive R colectomy related to obstructing mass at splenic flexure by Pardeep on 07/08. Sent here from rehab due to leukocytosis. WBC 07/13 7.9, 07/17 14.7, 07/21 17.1, this am 15.3 and now 13.3. No abdominal symptoms. No urinary or pneumonia
symptoms. Only c/o a sore throat 'from the tube down by throat'. Unremarkable posterior oropharynx, b/l lower quadrant ecchymosis, no sign of infection along brian. Of note, she tells me the path report showed 'no cancer', but in [facility], it
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 Outpt CXR was unremarkable.
Urinalysis suggest infection however the patient has no symptoms, Rocephin given. Urine culture pending. Ultrasound imaging shows no DVT
12:20 AM: I reassessed patient. She appears comfortable but does need to go to the bathroom. Sent message to Dr. Roberto who prefers patient to be To hospitalist service.
Past History
Past History
ED Past Medical History: HTN, Hypercholesterolemia and Other (low back pain)
ED Past Surgical History: None
Social History
Tobacco: Non-smoker
Alcohol: None
Personal:
Living: with family
Phy Exam
Physical Exam
Physical Exam:
See HPI
Course
Orders/Labs/Results
Orders:
Orders
07/22/24 16:05
Complete Blood Count/With Diff Urgent
Comprehensive Metabolic Panel Urgent
07/22/24 19:37
CT Abd/pel W Iv And Oral Contr Urgent
Comment:
Reason For Exam: leukocytosis after colectomy, no pain;
Iohexol [Omnipaque] See Protocol PO NOW STA
US Legs, Bilateral [US Periph Venous LOWER Ext Jorge Luis] Urgent
Comment:
Reason For Exam: leukocytosis post-op requested by Pardeep
07/22/24 19:40
0.9% Sodium Chloride 500 ml [Nss] 500 ml IV BOLUS
07/22/24 19:58
Urinalysis Reflex To Culture Urgent
Date Specimen was Collected: 07/22/24
Time Specimen was Collected: 19:55
Urine Microscopic Reflex Cult Urgent
Urine Culture Urgent
ANASTACIA Source: U
Specimen Description:
Date Specimen was Collected: 07/22/24
Time Specimen was Collected: 19:55
07/22/24 20:41
CefTRIAXone [Rocephin] 1,000 mg IV NOW STA
Abnormal Lab Results
07/22/24 07/22/24
16:05 19:58
WBC 13.3 H 10^3/uL
(4.8-10.8)
RBC 2.76 L 10^6/uL
(4.20-5.40)
Hgb 8.5 L g/dL
(12.0-16.0)
Hct 26.1 L %
(37.0-47.0)
MCHC 32.6 L g/dL
(33.0-37.0)
RDW 16.6 H %
(11.5-14.5)
Abs Immat Gran (auto) 0.4 H 10^3/uL
(0-0.05)
Absolute Neuts (auto) 9.7 H 10^3/uL
(1.4-6.5)
Absolute Monos (auto) 1.3 H 10^3/uL
(0.1-0.6)
Immature Gran % 2.8 H %
(0-0.5)
Lymphocytes % 11.0 L %
(20.5-51.1)
Monocytes % 9.4 H %
(1.7-9.3)
Sodium 134 L mmol/L
(135-145)
Glucose 154 H mg/dl
(70-99)
Total Protein 5.7 L g/dl
(6.3-8.2)
Albumin 3.1 L g/dl
(3.5-5.0)
Ur Occult Blood Reflex 1+ A
(Negative)
Leukocyte Esterase Rfl 3+ A
(Negative)
Urine RBC 3-6 A /HPF
(0-2)
Urine WBC (Reflex) 80-90 A /HPF
(0-5)
Urine Bacteria (Reflex) Few A
(Negative)
07/22/24 16:05
07/22/24 16:05
Vital Signs
Initial and Last Documented VS:
Initial Vital Signs
Temp Pulse Resp BP Pulse Ox
36.6 C 68 18 142/73 98
07/22/24 15:56 07/22/24 15:56 07/22/24 15:56 07/22/24 15:56 07/22/24 15:56
Last Documented Vital Signs
Temp Pulse Resp BP Pulse Ox
36.6 C 68 18 142/73 98
07/22/24 15:56 07/22/24 15:56 07/22/24 15:56 07/22/24 15:56 07/22/24 15:56
*Critical Care Note
Total Time (30-74mins, 75-104mins- exclusive of procedures): Not Applicable
ED Attending Note
-
Portions of this chart may have been created with voice recognition software.� Occasional wrong word or��sound alike� substitutions may have occurred due to the inherent limitations of voice recognition software.
Discharge Plan
Departure
Prescriptions:
No Action
losartan 50 mg Tablet
50 mg PO DAILY
tolterodine 4 mg Capsule,Extended Release 24hr
4 mg PO DAILY
levothyroxine 88 mcg Tablet
88 mcg PO DAILY
omeprazole 20 mg Capsule,Delayed Release(Dr/Ec)
20 mg PO DAILY
pravastatin 20 mg Tablet
20 mg PO QPM
nebivolol 5 mg Tablet
5 mg PO DAILY
Centrum Women 18-400 mg-mcg Tablet
1 tab PO DAILY
omega 4-jzc-ipe-fish oil [Fish Oil] 1,200 (144-216) mg Capsule
1 cap PO DAILY
Caltrate 600 plus D 600 mg-20 mcg (800 unit) Tablet,Chewable
1 tab PO DAILY
Eliquis 2.5 mg tablet
2.5 mg PO BID 14 Days Qty: 28 0RF
zolpidem 5 mg Tablet
5 mg PO HSPRN PRN (Reason: insomnia) Qty: 15 0RF
tramadol 50 mg Tablet
50 mg PO TIDPRN PRN (Reason: moderate pain) Qty: 14 0RF
Referrals:
Shalom Couch DO [Family Provider] -
Interventions
Interventions:
*Risk Screen - Suicide Last Done: 07/22/24 15:56
*General Assessment Last Done: 07/22/24 15:56
*Neglect/Abuse Screening Last Done: 07/22/24 15:56
*ED COVID-19 Vaccine History Last Done: 07/22/24 15:56
Discharge Date and Time
Print Language: GUINEAN
[2024-07-22] MEDS: NSS 500 IV (20:00)
[2024-07-22 20:16] LABS: Urine Albumin Negative (Neg - Trace); Urine Bilirubin Negative (Negative); Urine Character Clear (Clear); Urine Color Yellow; Urine Glucose Negative (Negative); Urine Ketone Negative (Negative); Urine Leukocyte 3+ (Negative); Urine Nitrite Negative (Negative); Urine Occult Blood 1+ (Negative); Urine Specific Gravity 1.005 (<1.030); Urine Urobilinogen Negative (Neg - 1+)
[2024-07-22 20:24] LABS: Urine Bacteria Few (Negative); Urine White Cell 80-90 /HPF (0-5)
[2024-07-22] MEDS: OMNIPAQUE 50 ML PO (20:45)
[2024-07-22] MEDS: ROCEPHIN 1000 MG IV (21:09)
[2024-07-22 21:15] VITALS: BP 186/78
[2024-07-22 22:03] VITALS: BP 198/80
[2024-07-23] VITALS (8 sets, daily range): BP systolic 120–186; BP diastolic 55–79; BMI 31.1
--- NOTE | 2024-07-23 01:53 | HPS.HSE ---
Family Physician
-
Family Physician: Shalom Couch
Chief Complaint
-
Leukocytosis
History of Present Illness
This is an 89-year-old female who had extensive right colectomy related to obstructing mass at splenic flexure and sent in from rehab for persistent leukocytosis since July 17.
Patient has self denies any abdominal symptoms. She denies any urinary symptoms. She denies any cough fevers or chills. She reports a slight sore throat since her intubation. She had an x-ray as an outpatient which was unremarkable.
In the ED she was afebrile, blood pressure 140/70 with a pulse of 68 and satting 98% on room air.
CBC today is 13.3 trending down from 15.3 this a.m. and 17.1 yesterday. Hemoglobin is 8.5 and platelet count of 387. Electrolytes BUN/creatinine were normal. LFTs unremarkable. UA with WBCs leukocyte esterase and a few bacteria which is similar
to prior and agreeable polymicrobial organisms.
She had a repeat CT of the abdomen and pelvis which did not show an acute sigmoid diverticulitis.
Medical History
Past Medical History
Past Medical History: Reports HTN and Hypercholesterolemia
Past Surgical History: Reports Bowel Resection
Social History
Tobacco: Non-smoker
Drug: None
Family History
Family History: Not pertinent
Allergies / Home Medications
Allergies reflects when Allergies were last updated in [facility].
Home Medications with original date entered in [facility]
Allergy/Medication List:
Allergies
Allergy/AdvReac Type Severity Reaction Status Date / Time
codeine Allergy Nausea / Verified 07/05/24 12:04
Vomiting
Home Medications
bismuth subsalicylate 262 mg chewable tablet 1 tab PO PRN PRN .as directed 07/05/24
calcium 600 mg (as carbonate)-vit D3 20 mcg (800 unit) chewable tablet (Caltrate plus D) 1 tab PO DAILY 07/05/24
levothyroxine 88 mcg tablet 88 mcg PO DAILY 07/05/24
losartan 50 mg tablet 50 mg PO DAILY 07/05/24
multivitamin-ferrous fumarate-folic acid 18 mg-400 mcg tablet (Centrum Women) 1 tab PO DAILY 07/05/24
nebivolol 5 mg tablet 5 mg PO BID 07/05/24
omega 7-caj-ghd-fish oil 1,200 mg (144 mg-216 mg) capsule (Fish Oil) 1 cap PO DAILY 07/05/24
omeprazole 20 mg capsule,delayed release 20 mg PO DAILY 07/05/24
pravastatin 20 mg tablet 20 mg PO DAILY 07/05/24
tolterodine 4 mg capsule,extended release 24 hr 4 mg PO DAILY 07/05/24
tramadol 50 mg tablet 50 mg PO PRN PRN pain 07/05/24
zolpidem 5 mg tablet 5 mg PO HS 07/05/24
Review of Systems
-
Constitutional: Reports No Symptoms
EENT: Reports No Symptoms
Respiratory: Reports No Symptoms
Cardiac: Reports No Symptoms
Abdomen/GI: Reports No Symptoms
: Reports No Symptoms
Musculoskeletal: Reports No Symptoms
Skin: Reports No Symptoms
Neurological: Reports No Symptoms
Endocrine: Reports No Symptoms
Hematologic/Lymphatic: Reports No Symptoms
Psych: Reports No Symptoms
Physical Exam
Vital Signs
Vital Signs
Temp Pulse Resp BP Pulse Ox
97.9 F 68 18 198/80 96
07/22/24 15:56 07/22/24 15:56 07/22/24 15:56 07/22/24 22:03 07/22/24 22:15
Physical Exam
General: Well Developed, Well Nourished and No Apparent Distress
HEENT: NormoCephalic, Moist mucous membranes and Atraumatic
Respiratory: Clear
Cardiac: S1/S2 and Regular Rhythm; No Murmur or Rub
GI: Soft, Non Tender, Non Distended and Normal Bowel Sounds
Rectal: Deferred by Provider
Musculoskeletal: No Clubbing, No Cyanosis and No Edema
Skin: No Rash
Neuro: Nonfocal/grossly intact
Laboratory Results
-
07/22/24 16:05
07/22/24 16:05
Laboratory Results
Total Bilirubin 0.6 mg/dl (0.2-1.3) 07/22/24 16:05
AST 19 U/L (14-36) 07/22/24 16:05
ALT 13 U/L (0-35) 07/22/24 16:05
Alkaline Phosphatase 71 U/L (38-126) 07/22/24 16:05
Data Reviewed
-
CT Scan: Report Reviewed by me
Lab Data: Labs Reviewed by me
Old Records: Reviewed
Impression/Plan
-
IMPRESSION:
89-year-old female with past medical history significant for intra-abdominal mass status post colectomy relating to the obstructing mass who presents from rehab with persistent leukocytosis for the last few days without any symptoms. Patient has no
signs on examination. Labs here showed persistent leukocytosis to 13. CT scan consistent with acute diverticulitis. UA seems similar to prior with polymicrobial positive UA.
PLAN:
Acute diverticulitis -acute diverticulitis on CT scan with leukocytosis. No pain no fevers no chills. No nausea vomiting or diarrhea.
- Admit to MedSurg observation
- Blood cultures
- IV ceftriaxone and Flagyl
- Monitor for pain currently continue postoperative pain management
- Status post IV fluids in the ED
- Continue diet as tolerated
- she developed foul smelling diarrhea after admission, sent for cdiff with pending results.
- Colorectal consulted because they operated on her recently and recommended admission
UTI -question colonization with polymicrobial bacteria. She does have frequent urination while in the ED. She denies any dysuria or flank pain. h/o polymicrobial growth.
-Urine culture
-On ceftriaxone
Continue home antihypertensive, levothyroxine, statin and PPI
DVT prophylaxis�on apixaban 2.5 p.o. twice daily continue
CODE STATUS is DNR
[2024-07-23] MEDS: FLAGYL 500 MG 100 IV ×2 (04:55→11:45)
--- NOTE | 2024-07-23 05:10 | PTCARENOTE ---
Pt incontinent of moderate amount of loose/gelatinous, foul smelling stool. House DANCE DIRECTOR notified. Stool for cdiff ordered and sent.
[2024-07-23 05:20] LABS: Hemoglobin 8.9 g/dL (12.0-16.0); Mean Corp Hgb Conc. 34.2 g/dL (33.0-37.0); Mean Corpuscular Hgb 31.6 pg (27.0-31.0); Mean Corpuscular Volume 92.2 fL (81.0-99.0); Mean Platelet Volume 9.3 fL (7.4-10.4); Platelet Count 393 10^3/uL (130-400); Red Blood Cell Count 2.82 10^6/uL (4.20-5.40); Red Cell Dist. Width 16.5 % (11.5-14.5); White Blood Cell Count 14.1 10^3/uL (4.8-10.8)
[2024-07-23 05:41] LABS: Blood Urea Nitrogen 9 mg/dl (7-17); Calcium 9.4 mg/dl (8.4-10.2); Carbon Dioxide 28 mmol/L (22-30); Chloride 106 mmol/L (98-107); Glucose 103 mg/dl (70-99); Potassium 4.2 mmol/L (3.5-5.1); Sodium 136 mmol/L (135-145); eGFR > 60.00
[2024-07-23] MEDS: SYNTHROID 88 MCG PO (05:41)
--- NOTE | 2024-07-23 08:46 | CON.CRS ---
Consultation
-
Date/Time Consultation Performed: 07/23/2024
Performing Provider: Anastacio Mac MD
Reason for Consultation: Abdominal pain
Medical History
-
History of Present Illness:
Patient is an 89-year-old female with PMH of HTN, HLD, hypothyroidism, GERD who was recently hospitalized for an obstructing colon mass requiring extended right hemicolectomy (path showing invasive adenocarcinoma, T3 N0). She was recovering at
rehab when routine labs were done showing a leukocytosis. These labs were repeated the following day with persistent leukocytosis, so she was sent to the hospital. Her WBC in the ED was 13.3. She denied any abdominal pain, nausea/vomiting or
change in bowel habits. Due to recent surgery, a CT scan was done, which showed acute diverticulitis without abscess or free air. Currently, the patient says that she feels completely fine and has no complaints.
Past Medical History
Past Medical History: Other (As above)
Past Surgical History: Other (As above)
Social History
Tobacco: Non-Smoker
Alcohol: None
Drug: None
Family History
Family History: Reviewed & Not Pertinent
Allergies / Home Medications
Allergy/AdvReac Type Severity Reaction Status Date / Time
codeine Allergy Nausea / Verified 07/22/24 16:01
Vomiting
�Medication �Instructions �Recorded �Confirmed �Type
calcium 600 mg (as carbonate)-vit 1 tab PO DAILY 07/05/24 07/05/24 History
D3 20 mcg (800 unit) chewable
tablet (Caltrate plus D)
levothyroxine 88 mcg tablet 88 mcg PO DAILY 07/05/24 07/05/24 History
losartan 50 mg tablet 50 mg PO DAILY 07/05/24 07/05/24 History
multivitamin-ferrous 1 tab PO DAILY 07/05/24 07/05/24 History
fumarate-folic acid 18 mg-400 mcg
tablet (Centrum Women)
nebivolol 5 mg tablet 5 mg PO DAILY 07/05/24 07/05/24 History
omega 2-hte-ckv-fish oil 1,200 mg 1 cap PO DAILY 07/05/24 07/05/24 History
(144 mg-216 mg) capsule (Fish Oil)
omeprazole 20 mg capsule,delayed 20 mg PO DAILY 07/05/24 07/05/24 History
release
pravastatin 20 mg tablet 20 mg PO QPM 07/05/24 07/05/24 History
tolterodine 4 mg capsule,extended 4 mg PO DAILY 07/05/24 07/05/24 History
release 24 hr
apixaban 2.5 mg tablet (Eliquis) 2.5 mg PO BID 2 weeks #28 tabs 07/14/24 Rx
tramadol 50 mg tablet 50 mg PO TIDPRN PRN moderate pain 07/14/24 07/05/24 Rx
#14 tabs
zolpidem 5 mg tablet 5 mg PO HSPRN PRN insomnia #15 tabs 07/14/24 Rx
Review of Systems
-
A 10 point review of systems was completed, and was negative except as per HPI.
Physical Exam
Vital Signs
Temp 97.9 F 07/23/24 06:56
Pulse 85 07/23/24 06:56
Resp Rate 16 07/23/24 06:56
Blood pressure 131/75 07/23/24 06:56
SaO2 97 07/23/24 06:56
Lab Results / Allergies
07/23/24 04:51
07/23/24 04:51
WBC 14.1 10^3/uL (4.8-10.8) H 07/23/24 04:51
Hgb 8.9 g/dL (12.0-16.0) L 07/23/24 04:51
Hct 26.0 % (37.0-47.0) L 07/23/24 04:51
Plt Count 393 10^3/uL (130-400) 07/23/24 04:51
Abs Immat Gran (auto) 0.4 10^3/uL (0-0.05) H 07/22/24 16:05
Neutrophils % 72.8 % (42.2-75.2) 07/22/24 16:05
Allergy/AdvReac Type Severity Reaction Status Date / Time
codeine Allergy Nausea / Verified 07/22/24 16:01
Vomiting
Physical Exam
General: Well Developed, Well Nourished and No Apparent Distress
HEENT: Normocephalic and Atraumatic
Respiratory: Non Labored Respirations
GI: Soft, Non Tender (No rebound or guarding; minimal tenderness with deep palpation in the LLQ) and Non Distended
Skin: Warm and Dry
Neuro: AO x 3
Data Reviewed
-
CT Scan: Image Personally Visualized and interpreted and Discussed with Patient
Labs: Labs Reviewed by me and Discussed with Patient
Assessment / Plan
-
89-year-old female with PMH of HTN, HLD, hypothyroidism, GERD who was recently hospitalized for an obstructing colon mass requiring extended right hemicolectomy (path showing invasive adenocarcinoma, T3 N0). She was recovering at rehab when routine
labs were done showing a leukocytosis. These labs were repeated the following day with persistent leukocytosis, so she was sent to the hospital. Her WBC in the ED was 13.3. She denied any abdominal pain, nausea/vomiting or change in bowel habits.
Due to recent surgery, a CT scan was done, which showed acute diverticulitis without abscess or free air.
AFVSS
WBC 14.1
� Okay for regular diet
� Continue IV antibiotics with ceftriaxone and Flagyl
� Pain control with Tylenol and tramadol as needed
� Okay for home meds
� Encourage IS/OOB
� Appreciate hospitalist; if tolerating solid food, okay for discharge back to rehab from colorectal standpoint if medically clear; follow-up with Dr. Roberto as previously scheduled
[2024-07-23] MEDS: PROTONIX 40 MG PO (09:12)
[2024-07-23] MEDS: ELIQUIS 2.5 MG PO (09:13)
[2024-07-23] MEDS: DETROL LA 4 MG PO (09:14)
[2024-07-23] MEDS: BYSTOLIC 5 MG PO (09:14)
[2024-07-23] MEDS: COZAAR 50 MG PO (09:14)
--- NOTE | 2024-07-23 11:19 | W.PN.HOSP.TC ---
Today's Communication/Plan
-
Discharge
Assessment / Plan
Assessment / Plan
Gen-AAOx3, NAD
HEENT-NC, AT, anicteric, clear oral mm
Neck-supple
CV-reg, no M, +S1/S2
Lungs-clear B/L
Abd-soft, NT, ND
Ext-no edema
Musculoskeletal-no cyanosis, clubbing
Skin-warm and dry
Neuro-grossly non-focal
Psych-calm, cooperative
Asymptomatic leukocytosis -perhaps due to diverticulitis noted on CT scan or UTI symptoms and therefore would not officially diagnose UTI. No fevers or chills.
Of note the leukocytosis has been present since July 17.
Acute uncomplicated sigmoid diverticulitis -noted on CT scan. No symptoms. Can discharge on Augmentin and follow-up as an outpatient. Tolerating diet so far.
Seen by colorectal surgery.
Hyponatremia -present on admission, resolved.
Asymptomatic pyuria -doubt UTI.
Colon adenocarcinoma -pathology report shows invasive adenocarcinoma, moderately differentiated, invading through the muscularis propria into pericolonic tissues. No lymphovascular invasion. 18 lymph nodes negative for carcinoma. T3 N0. She
presented with obstructing colonic mass in June and underwent extended right colectomy with takedown of splenic flexure 07/08/2024.
Normocytic anemia -suspect related to colon cancer. Has been anemic since admission to the hospital in June. Hemoglobin stable.
Essential hypertension -stable.
Hyperlipidemia -pravastatin.
Hypothyroidism -levothyroxine.
DNR
Dispo -medically stable for discharge back to [facility] today. Case management aware. Outpatient follow-up. Updated family at the bedside.
32 minutes spent in discharge process.
Anticipated Discharge: Today
Subjective/Interval History
-
Date of Service: July 23, 2024
Patient seen and examined. Denies abdominal pain, denies urinary symptoms. No complaints.
Objective Data
-
Labs:
Laboratory Results
07/23/24
04:51
WBC 14.1 H
Hgb 8.9 L
Hct 26.0 L
Plt Count 393
Sodium 136
Potassium 4.2
Chloride 106
Carbon Dioxide 28
BUN 9
Creatinine 0.5 L
Glucose 103 H
Calcium 9.4
Vital Signs:
Vital Signs
Temp Pulse Resp BP Pulse Ox
97.9 F 85 16 131/75 97
07/23/24 06:56 07/23/24 06:56 07/23/24 06:56 07/23/24 06:56 07/23/24 06:56
I&O
07/22/24 07/23/24 07/24/24
06:59 06:59 06:59
Intake Total 240 / 240
Balance 240 / 240
Review of Systems
-
History Source: Patient
All other systems: Reviewed and negative
--- NOTE | 2024-07-23 11:23 | CM ---
CM met with pt and dtr bedside
Pt typically resides with her spouse in an apartment with 3+7STE
She is indep with her ADLs, denies use of DMEs, drives+
Pt is currently a STR resident from [facility]
Pt ready for dc today
Discussion with Rosalind/admissions
Plan for return to [facility] today
Return referral sent via [facility]
LAN verbally reviewed- copy provided
Transport form completed
Discharge Disposition- return to [facility] for continued STR
Phone- [phone] Fax- [phone]
--- NOTE | 2024-07-23 11:35 | W.DS.TRANS ---
DC Summary - Taxation Inspector
-
Discharge Instructions:
Discharge Diagnosis/Procedures Acute sigmoid diverticulitis
Diet Low Residue
Activity With assistance,As tolerated
Driving Restrictions No driving
Bathing Restrictions None
Instructions:
Stand-Alone Forms:
Changes to Home Medications: No
Discharge Medications:
DC Medications w/original date entered in [employer]
calcium 600 mg (as carbonate)-vit D3 20 mcg (800 unit) chewable tablet (Caltrate plus D) 1 tab PO DAILY 07/05/24
levothyroxine 88 mcg tablet 88 mcg PO DAILY 07/05/24
losartan 50 mg tablet 50 mg PO DAILY 07/05/24
multivitamin-ferrous fumarate-folic acid 18 mg-400 mcg tablet (Centrum Women) 1 tab PO DAILY 07/05/24
nebivolol 5 mg tablet 5 mg PO DAILY 07/05/24
omega 9-muf-dvi-fish oil 1,200 mg (144 mg-216 mg) capsule (Fish Oil) 1 cap PO DAILY 07/05/24
omeprazole 20 mg capsule,delayed release 20 mg PO DAILY 07/05/24
pravastatin 20 mg tablet 20 mg PO QPM 07/05/24
tolterodine 4 mg capsule,extended release 24 hr 4 mg PO DAILY 07/05/24
apixaban 2.5 mg tablet (Eliquis) 2.5 mg PO BID 2 weeks #28 tabs 07/14/24
tramadol 50 mg tablet 50 mg PO TIDPRN PRN moderate pain #14 tabs 07/14/24
zolpidem 5 mg tablet 5 mg PO HSPRN PRN insomnia #15 tabs 07/14/24
amoxicillin 875 mg-potassium clavulanate 125 mg tablet 1 tab PO BID #14 tabs 07/23/24
Home Medication Changes
Pending Results: No
[2024-07-23] MEDS: TYLENOL 650 MG PO (12:16)
== END 2024-07-23 14:18 ==
LOC: ED 02:38
PROVIDERS: Student in an Organized Health Care Education/Training Program; ADMITTING PHYSICIAN Internal Medicine; ATTENDING PHYSICIAN Hospitalist; EMERGENCY PHYSICIAN Emergency Medicine; FAMILY PHYSICIAN Internal Medicine; OTHER PHYSICIAN Surgery
DX: K57.32 Diverticulitis of large intestine without perforation or abscess without bleeding (principal); N39.0 Urinary tract infection, site not specified; Z79.890 Hormone replacement therapy; Z66 Do not resuscitate; E03.9 Hypothyroidism, unspecified; G89.29 Other chronic pain; M54.50 Low back pain, unspecified; D50.9 Iron deficiency anemia, unspecified
CPT/HCPCS: 74177; 80048; 80053; 81003; 81015; 85025; 85027; 87086; 87324; 87449; 93970; 96361; 96374; 99285; G0378; Q9967